=== PATIENT | female | born 1945 | race Caucasian/White ===

== ENCOUNTER 2018-01-22 11:24 | Inpatient (IN) ==
[2018-01-22] MEDS ORDERED: Isovue-370 500 ML INFUS..BTL IV ONE (11:36)
[2018-01-22] MEDS ORDERED: 0.9 % Sodium Chloride 1,000 ML IVC ONE ×2 (11:36→13:44)
[2018-01-22] MEDS ORDERED: FentaNYL (PF) 1,000 MCG in 0.9 % Sodium Chloride 80 ML IVC SCH (11:45)
[2018-01-22 11:54] LABS: Bilirubin,Urine Negative (Negative); Blood,Urine Negative (Negative); Clarity,Urine Clear (Clear); Color,Urine Yellow (Yellow); Glucose,Urine (UA) Normal (Normal); Ketones,Urine Negative (Negative); Leukocyte Esterase,Urine Negative (Negative); Nitrite,Urine Negative (Negative); PH,Urine 6.5 pH Units (5.0-8.0); Protein,Urine Negative (Neg-Trace); Specific Gravity,Urine 1.019 (1.010-1.025); Urobilinogen,Urine Normal (Normal)
[2018-01-22 11:57] LABS: ABG Base Excess 20 mEq/L (-2 to 3); ABG HCO3 48 mEq/L (21-27); ABG Oxygen Saturation 100 % (95-98); ABG PCO2 78 mmHg (35-45); ABG PO2 500 mmHg (85-104); ABG TCO2 51 mEq/L (20-26); Blood Gas Modality ASSIST CONTROL; Blood Gas PEEP 5 cm H2O; Blood Gas Respiration Rate 14; Blood Gas VT 500 cc
--- NOTE | 2018-01-22 11:58 | Emergency Department Note ---
Disposition Clinical Impression: Hyperkalemia, Acute respiratory distress Disposition: Admitted As Inpatient Condition: Fair Forms: ED Satisfaction Letter Time of Disposition: 13:38 General Adult HPI - General Chief complaint: ED Shortness of Breath/Dyspnea Stated complaint: respitary distress Time Seen by Provider: 01/22/18 11:35 Source: EMS Mode of arrival: EMS Limitations: other Nursing Notes Reviewed: Yes Vital Signs Reviewed: Yes - History of Present Illness HPI Narrative: 72 year old female prsentes to the ED via EMS in acute respiratory failure with a nasal ET tube. Julio has a history of COPD and was unresponsive and hypoxic to 81% and cyanotic on presentation for EMS. EMS states that she was recently diagnosed with a UTI and refused to be treated for it. Patient is somnolent and snoring on presentation with a GCS < 8. Aside from the history that EMS has offered there is no other history to be provided. Pain Scale: 0 - Related Data Allergies Allergy/AdvReac Type Severity Reaction Status Date / Time No Known Allergies Allergy Unverified 03/31/16 11:10 Review of Systems: As Per HPI (given by EMS) Constitutional: Reports: weakness. Denies: fever, chills, weight change Eyes: Denies: eye pain, eye discharge, vision change ENT ED: Denies: ear pain, throat pain, dental pain, hearing loss, epistaxis, congestion, dysphagia Cardiovascular: Reports: dyspnea on exertion. Denies: chest pain, palpitations , edema, syncope Respiratory: Reports: dyspnea, wheezes. Denies: cough, hemoptysis, stridor Gastrointestinal: Denies: abdominal pain, nausea, vomiting, diarrhea, constipation, hematemesis, melena, hematochezia Genitourinary: Reports: urgency, dysuria, frequency. Denies: hematuria, discharge Musculoskeletal: Denies: back pain, neck pain, arthralgia, myalgia Integumentary: Denies: rash, abrasion, lesions Neurological: Denies: headache, weakness, numbness, paresthesias, confusion, abnormal gait, vertigo Psychiatric: Denies: anxiety, depression, suicidal thoughts, homicidal thoughts , auditory hallucinations, visual hallucinations Endocrine: Denies: fatigue Hematological/Lymphatic: Denies: easy bleeding, easy bruising Allergic/Immunologic: Denies: facial swelling, urticaria Past Medical History - Past Medical History Medical history: Reports: non-contributory - Social History Smoking Status: Current every day smoker Smokeless Tobacco Status: No Physical Exam - General Limitations: other General appearance: obtunded, other - Head Head exam: atraumatic, normocephalic, normal inspection - Eye Eye exam: Present: normal appearance, PERRL, EOMI, mydriasis - ENT ENT exam: normal exam, normal oropharynx, mucous membranes moist, other (nasal ET tube in place) - Neck Neck exam: Present: normal inspection, full ROM, trachea midline - Chest Chest inspection: Present: normal inspection, symmetric chest wall rise - Respiratory Respiratory exam: Present: respiratory distress, wheezes, accessory muscle use, prolonged expiratory phase - Cardiovascular Cardiovascular exam: Present: regular rate, normal rhythm, normal heart sounds - Abdominal Exam Abdominal exam: Present: soft, Non-Tender. Absent: tenderness, distention, guarding, rebound, rigidity - Extremities Exam Extremities exam: Present: normal inspection, full ROM. Absent: tenderness, pedal edema - Back Exam Back exam: Present: normal inspection, full ROM. Absent: tenderness - Neurological Exam Neurological exam: Absent: alert, oriented X3 Course Course Narrative: we will do AMS/sepsis wokrup on patinet and have replaced the nasal tube with an ET tube. SEdation protocol ordered. - Reevaluation(s) Reevaluation #1: updated patients family on results. She has some blood nasopharyngeal discharge which is likely traumatic from the nasal ET tube place dby EMS. she is not anemic at this time. Admit to ICU Time: 13:37 - Consultations Consultation #1: discussed case with and he has accepted patient to the ICU Time: 13:37 Vital Signs Temperature 97.6 F 01/22/18 11:28 Pulse Rate 89 01/22/18 11:28 Respiratory Rate 10 01/22/18 11:28 Blood Pressure 115/65 01/22/18 11:28 O2 Sat by Pulse Oximetry 100 01/22/18 11:28 Temperature 97.6 F 01/22/18 11:38 Pulse Rate 87 01/22/18 13:30 Respiratory Rate 16 01/22/18 13:30 Blood Pressure 124/76 01/22/18 13:30 O2 Sat by Pulse Oximetry 100 01/22/18 13:30 Oxygen Delivery Oxygen Delivery Ventilator Procedures - Intubation Time out performed: No sedative: Etomidate Mg Given: 20 paralytic: Rocuronium Mg Given: 100 Laryngoscope: other (Cmac) ET Tube Size: Oral ET Tube Uncuffed: No Tube Secured Depth (cm): 23 Tube Secured Location: teeth Tube Placement Confirmation: visualized tube passing through cords, equal breath sounds bilaterally, no breath sounds over epigastrium Patient Tolerated Procedure: well Intubation Complications: none Medical Decision Making - Medical Records Medical records reviewed: Yes I reviewed the patient's medical records. - Lab Data Lab results reviewed: Yes I reviewed the patient's lab results. Result diagrams: 01/22/18 11:48 01/22/18 11:48 Lab Results 01/22/18 01/22/18 01/22/18 Range/Units 11:32 11:40 11:48 WBC 8.1 (4.3-11.1) K/mcL RBC 3.32 L (3.82-4.97) M/mcL Hgb 10.1 L (11.5-15.4) g/dL Hct 34.4 L (35.3-44.9) % MCV 103.6 H (83.0-100.0) fL MCH 30.4 (28.0-33.3) pg MCHC 29.4 L (31.6-35.5) g/dL RDW 12.7 (11.5-14.5) % Plt Count 255 (140-400) K/mcL MPV 9.2 L (9.4-12.4) fL Immature Gran % 0.9 (0-4) % Seg Neutrophils % 76.1 % Lymphocytes % 14.7 % Monocytes % 6.6 % Eosinophils % 1.2 % Basophils % 0.5 % Neutrophils # 6.1 (1.6-8.9) K/mcL Lymphocytes # 1.2 (0.6-4.6) K/mcL Monocytes # 0.5 (0.0-1.3) K/mcL Eosinophils # 0.1 (0.0-0.6) K/mcL Basophils # 0.0 (0.0-0.2) K/mcL PT (9.4-12.1) Seconds INR APTT (26.0-36.0) Seconds ABG pH (7.32-7.45) pH Units ABG pCO2 (35-45) mmHg ABG pO2 (85-104) mmHg ABG HCO3 (21-27) mEq/L ABG Total CO2 (20-26) mEq/L ABG O2 Saturation (95-98) % ABG Base Excess (-2 to 3) mEq/L Respiration Rate Blood Gas Modality Inspired O2 (1-15=lpm [id number]=%) Tidal Volume cc PEEP cm H2O Sodium (136-145) mEq/L Potassium (3.5-5.1) mEq/L Chloride (98-107) mEq/L Carbon Dioxide (23-29) mEq/L BUN (8-23) mg/dL Creatinine (0.60-1.20) mg/dL Est GFR ( Amer) (> 60) Est GFR (Non-Af Amer) (> 60) BUN/Creatinine Ratio (6-26) Glucose (70-105) mg/dL POC Glucose 88 (70-99) mg/dL Calculated Osmolality (280-300) Lactic Acid (0.5-2.2) mmol/L Calcium (8.6-10.3) mg/dL Phosphorus (2.7-4.5) mg/dL Magnesium (1.6-2.6) mg/dL Total Bilirubin (0.3-1.0) mg/dL Direct Bilirubin (0.0-0.2) mg/dL Indirect Bilirubin (0.0-1.2) mg/dL AST (13-39) Units/L ALT (7-52) Units/L Alkaline Phosphatase (34-104) Units/L Troponin I (< 0.04) ng/mL Serum Total Protein (6.4-8.9) g/dL Albumin (3.5-5.7) g/dL Globulin (2.4-3.5) g/dL Albumin/Globulin Ratio (1.1-2.2) Lipase (11-82) Units/L Random Cortisol mcg/dl Urine Color Yellow (Yellow) Urine Clarity Clear (Clear) Urine pH 6.5 (5.0-8.0) pH Units Ur Specific [place] 1.019 (1.010-1.025) Urine Protein Negative (Neg-Trace) mg/dL Urine Glucose (UA) Normal (Normal) mg/dL Urine Ketones Negative (Negative) mg/dL Urine Blood Negative (Negative) Urine Nitrite Negative (Negative) Urine Bilirubin Negative (Negative) Urine Urobilinogen Normal (Normal) mg/dL Ur Leukocyte Esterase Negative (Negative) Ur Culture Indicated? NO (NO) 01/22/18 01/22/18 01/22/18 Range/Units 11:48 11:48 11:48 WBC (4.3-11.1) K/mcL RBC (3.82-4.97) M/mcL Hgb (11.5-15.4) g/dL Hct (35.3-44.9) % MCV (83.0-100.0) fL MCH (28.0-33.3) pg MCHC (31.6-35.5) g/dL RDW (11.5-14.5) % Plt Count (140-400) K/mcL MPV (9.4-12.4) fL Immature Gran % (0-4) % Seg Neutrophils % % Lymphocytes % % Monocytes % % Eosinophils % % Basophils % % Neutrophils # (1.6-8.9) K/mcL Lymphocytes # (0.6-4.6) K/mcL Monocytes # (0.0-1.3) K/mcL Eosinophils # (0.0-0.6) K/mcL Basophils # (0.0-0.2) K/mcL PT 10.8 (9.4-12.1) Seconds INR 1.0 APTT 26.6 (26.0-36.0) Seconds ABG pH (7.32-7.45) pH Units ABG pCO2 (35-45) mmHg ABG pO2 (85-104) mmHg ABG HCO3 (21-27) mEq/L ABG Total CO2 (20-26) mEq/L ABG O2 Saturation (95-98) % ABG Base Excess (-2 to 3) mEq/L Respiration Rate Blood Gas Modality Inspired O2 (1-15=lpm [id number]=%) Tidal Volume cc PEEP cm H2O Sodium 140 (136-145) mEq/L Potassium 5.2 H (3.5-5.1) mEq/L Chloride 93 L (98-107) mEq/L Carbon Dioxide > 45 H* (23-29) mEq/L BUN 19 (8-23) mg/dL Creatinine 0.59 L (0.60-1.20) mg/dL Est GFR ( Amer) > 60 (> 60) Est GFR (Non-Af Amer) > 60 (> 60) BUN/Creatinine Ratio 32 H (6-26) Glucose 87 (70-105) mg/dL POC Glucose (70-99) mg/dL Calculated Osmolality 292 (280-300) Lactic Acid 0.8 (0.5-2.2) mmol/L Calcium 8.8 (8.6-10.3) mg/dL Phosphorus 3.8 (2.7-4.5) mg/dL Magnesium 1.8 (1.6-2.6) mg/dL Total Bilirubin 0.3 (0.3-1.0) mg/dL Direct Bilirubin 0.2 (0.0-0.2) mg/dL Indirect Bilirubin 0.1 (0.0-1.2) mg/dL AST 15 (13-39) Units/L ALT 22 (7-52) Units/L Alkaline Phosphatase 86 (34-104) Units/L Troponin I < 0.03 (< 0.04) ng/mL Serum Total Protein 5.5 L (6.4-8.9) g/dL Albumin 3.4 L (3.5-5.7) g/dL Globulin 2.1 L (2.4-3.5) g/dL Albumin/Globulin Ratio 1.6 (1.1-2.2) Lipase 31 (11-82) Units/L Random Cortisol 17.5 mcg/dl Urine Color (Yellow) Urine Clarity (Clear) Urine pH (5.0-8.0) pH Units Ur Specific [place] (1.010-1.025) Urine Protein (Neg-Trace) mg/dL Urine Glucose (UA) (Normal) mg/dL Urine Ketones (Negative) mg/dL Urine Blood (Negative) Urine Nitrite (Negative) Urine Bilirubin (Negative) Urine Urobilinogen (Normal) mg/dL Ur Leukocyte Esterase (Negative) Ur Culture Indicated? (NO) 01/22/18 Range/Units 11:52 WBC (4.3-11.1) K/mcL RBC (3.82-4.97) M/mcL Hgb (11.5-15.4) g/dL Hct (35.3-44.9) % MCV (83.0-100.0) fL MCH (28.0-33.3) pg MCHC (31.6-35.5) g/dL RDW (11.5-14.5) % Plt Count (140-400) K/mcL MPV (9.4-12.4) fL Immature Gran % (0-4) % Seg Neutrophils % % Lymphocytes % % Monocytes % % Eosinophils % % Basophils % % Neutrophils # (1.6-8.9) K/mcL Lymphocytes # (0.6-4.6) K/mcL Monocytes # (0.0-1.3) K/mcL Eosinophils # (0.0-0.6) K/mcL Basophils # (0.0-0.2) K/mcL PT (9.4-12.1) Seconds INR APTT (26.0-36.0) Seconds ABG pH 7.40 (7.32-7.45) pH Units ABG pCO2 78 H* (35-45) mmHg ABG pO2 500 H (85-104) mmHg ABG HCO3 48 H (21-27) mEq/L ABG Total CO2 51 H (20-26) mEq/L ABG O2 Saturation 100 H (95-98) % ABG Base Excess 20 H (-2 to 3) mEq/L Respiration Rate 14 Blood Gas Modality ASSIST CONTROL Inspired O2 100.0 (1-15=lpm [id number]=%) Tidal Volume 500 cc PEEP 5 cm H2O Sodium (136-145) mEq/L Potassium (3.5-5.1) mEq/L Chloride (98-107) mEq/L Carbon Dioxide (23-29) mEq/L BUN (8-23) mg/dL Creatinine (0.60-1.20) mg/dL Est GFR ( Amer) (> 60) Est GFR (Non-Af Amer) (> 60) BUN/Creatinine Ratio (6-26) Glucose (70-105) mg/dL POC Glucose (70-99) mg/dL Calculated Osmolality (280-300) Lactic Acid (0.5-2.2) mmol/L Calcium (8.6-10.3) mg/dL Phosphorus (2.7-4.5) mg/dL Magnesium (1.6-2.6) mg/dL Total Bilirubin (0.3-1.0) mg/dL Direct Bilirubin (0.0-0.2) mg/dL Indirect Bilirubin (0.0-1.2) mg/dL AST (13-39) Units/L ALT (7-52) Units/L Alkaline Phosphatase (34-104) Units/L Troponin I (< 0.04) ng/mL Serum Total Protein (6.4-8.9) g/dL Albumin (3.5-5.7) g/dL Globulin (2.4-3.5) g/dL Albumin/Globulin Ratio (1.1-2.2) Lipase (11-82) Units/L Random Cortisol mcg/dl Urine Color (Yellow) Urine Clarity (Clear) Urine pH (5.0-8.0) pH Units Ur Specific [place] (1.010-1.025) Urine Protein (Neg-Trace) mg/dL Urine Glucose (UA) (Normal) mg/dL Urine Ketones (Negative) mg/dL Urine Blood (Negative) Urine Nitrite (Negative) Urine Bilirubin (Negative) Urine Urobilinogen (Normal) mg/dL Ur Leukocyte Esterase (Negative) Ur Culture Indicated? (NO) - Radiology Data Radiology results reviewed: Yes I reviewed the patient's radiology results. - EKG Data EKG #1 EKG attestation: Yes I reviewed and interpreted this EKG. EKG results narrative: NSR with rate of 84. NO STEMI. normal intervals. ghassan harrison from 07/22/14 [id number]
[2018-01-22 12:02] LABS: Basophils % 0.5 %; Eosinophils # 0.1 K/mcL (0.0-0.6); Eosinophils % 1.2 %; Hematocrit 34.4 % (35.3-44.9); Hemoglobin 10.1 g/dL (11.5-15.4); Immature Granulocytes % 0.9 % (0-4); Lymphocytes # 1.2 K/mcL (0.6-4.6); Lymphocytes % 14.7 %; Mean Corpuscular HGB Conc 29.4 g/dL (31.6-35.5); Mean Corpuscular Hemoglobin 30.4 pg (28.0-33.3); Mean Corpuscular Volume 103.6 fL (83.0-100.0); Mean Platelet Volume 9.2 fL (9.4-12.4); Monocytes # 0.5 K/mcL (0.0-1.3); Monocytes % 6.6 %; Neutrophils # 6.1 K/mcL (1.6-8.9); Platelet Count 255 K/mcL (140-400); Red Blood Count 3.32 M/mcL (3.82-4.97); Red Cell Distribution Width 12.7 % (11.5-14.5); Segmented Neutrophils % 76.1 %
[2018-01-22 12:07] LABS: Prothrombin Time 10.8 Seconds (9.4-12.1)
[2018-01-22 12:09] LABS: Activated Partial Thrombo Time 26.6 Seconds (26.0-36.0)
[2018-01-22 12:22] LABS: Troponin I < 0.03 ng/mL (< 0.04)
[2018-01-22 12:31] LABS: Alanine Aminotransferase 22 Units/L (7-52); Albumin 3.4 g/dL (3.5-5.7); Albumin/Globulin Ratio 1.6 (1.1-2.2); Alkaline Phosphatase 86 Units/L (34-104); Aspartate Amino Transferase 15 Units/L (13-39); BUN/Creatinine Ratio 32 (6-26); Bilirubin,Direct 0.2 mg/dL (0.0-0.2); Bilirubin,Indirect 0.1 mg/dL (0.0-1.2); Bilirubin,Total 0.3 mg/dL (0.3-1.0); Blood Urea Nitrogen 19 mg/dL (8-23); Calcium 8.8 mg/dL (8.6-10.3); Carbon Dioxide > 45 mEq/L (23-29); Chloride 93 mEq/L (98-107); Globulin 2.1 g/dL (2.4-3.5); Glucose 87 mg/dL (70-105); Lipase 31 Units/L (11-82); Magnesium 1.8 mg/dL (1.6-2.6); Osmolality,Calculated 292 (280-300); Phosphorous 3.8 mg/dL (2.7-4.5); Potassium 5.2 mEq/L (3.5-5.1); Sodium 140 mEq/L (136-145); Total Protein 5.5 g/dL (6.4-8.9); eGFR For African Americans > 60 (> 60); eGFR For Non-African Americans > 60 (> 60)
[2018-01-22] MEDS ORDERED: 0.9 % Sodium Chloride 1,000 ML ONE (13:45)
[2018-01-22] MEDS: 0.9 % Sodium Chloride 1,000 ML IVC SCH ×7 (14:23→22:45)
[2018-01-22] MEDS ORDERED: Sodium Bicarbonate 50 MEQ/50 ML VIAL IVP ONE (14:36)
--- NOTE | 2018-01-22 15:22 | Pulmonology History & Physical ---
<Lela Muro M - Last Filed: 01/22/18 17:59> Date of Encounter: 01/22/18 History of Present Illness HPI: Ms. Joy is a 72 year old female Past Med Surg Social Fam HX - Family History Father Living Status: Cause of : Cancer Medications and Allergies Albuterol Sulfate [Ventolin Hfa] 2 puff IH BID 01/22/18 [History] Budesonide/Formoterol 160/4.5 [Symbicort 160/4.5] 2 puff IH BIDR 01/22/18 [ History] Diltiazem CD (24hr) [Cardizem CD] 180 mg PO DAILY 01/22/18 [History] Ergocalciferol (VITAMIN D2) [Vitamin D2] 50,000 unit PO SA 01/22/18 [History] Ferrous Sulfate [Iron] 325 mg PO DAILY 01/22/18 [History] Fluticasone Propionate Nasal [Flonase] 2 spr NS DAILY 01/22/18 [History] LevETIRAcetam [Keppra] 500 mg PO Q12H 01/22/18 [History] Lisinopril [Zestril] 40 mg PO DAILY 01/22/18 [History] Loratadine [Allergy Relief] 10 mg PO DAILY 01/22/18 [History] Megestrol Acetate [Megace] 4,000 mg PO BID 01/22/18 [History] Multivit-Min/FA/Lycopen/Lutein [A Thru Z Select Multivit Tab] 1 tab PO DAILY [History] Tiotropium [Spiriva] 18 mcg IH DAILY 01/22/18 [History] Venlafaxine HCl [Venlafaxine HCl ER] 150 mg PO DAILY 01/22/18 [History] 3 Allergy/AdvReac Type Severity Reaction Status Date / Time No Known Allergies Allergy Unverified 03/31/16 11:10 All Systems: The remainder of the systems were reviewed and are negative Physical Examination Vital Signs: Vital Signs, Last 4 Hours Temp Pulse Resp BP Pulse Ox 01/22/18 17:21 100 01/22/18 17:01 10 119/68 100 01/22/18 17:00 100.0 F H 91 10 119/68 100 Results - Laboratory Findings CBC and BMP: 01/22/18 11:48 01/22/18 11:48 ABG ABG pH 7.40 pH Units (7.32-7.45) 01/22/18 17:22 ABG pCO2 63 mmHg (35-45) H 01/22/18 17:22 ABG pO2 552 mmHg (85-104) H D 01/22/18 17:22 ABG O2 Saturation 100 % (95-98) H 01/22/18 17:22 PT/INR, D-dimer PT 10.8 Seconds (9.4-12.1) 01/22/18 11:48 Abnormal lab findings: Abnormal lab results RBC 3.32 M/mcL (3.82-4.97) L 01/22/18 11:48 Hgb 10.1 g/dL (11.5-15.4) L 01/22/18 11:48 Hct 34.4 % (35.3-44.9) L 01/22/18 11:48 MCV 103.6 fL (83.0-100.0) H 01/22/18 11:48 MCHC 29.4 g/dL (31.6-35.5) L 01/22/18 11:48 MPV 9.2 fL (9.4-12.4) L 01/22/18 11:48 ABG pCO2 63 mmHg (35-45) H 01/22/18 17:22 ABG pO2 552 mmHg (85-104) H D 01/22/18 17:22 ABG HCO3 39 mEq/L (21-27) H 01/22/18 17:22 ABG Total CO2 41 mEq/L (20-26) H 01/22/18 17:22 ABG O2 Saturation 100 % (95-98) H 01/22/18 17:22 ABG Base Excess 12 mEq/L (-2 to 3) H 01/22/18 17:22 Potassium 5.2 mEq/L (3.5-5.1) H 01/22/18 11:48 Chloride 93 mEq/L (98-107) L 01/22/18 11:48 Carbon Dioxide > 45 mEq/L (23-29) H* 01/22/18 11:48 Creatinine 0.59 mg/dL (0.60-1.20) L 01/22/18 11:48 BUN/Creatinine Ratio 32 (6-26) H 01/22/18 11:48 Serum Total Protein 5.5 g/dL (6.4-8.9) L 01/22/18 11:48 Albumin 3.4 g/dL (3.5-5.7) L 01/22/18 11:48 Globulin 2.1 g/dL (2.4-3.5) L 01/22/18 11:48 - Attending Attestation I examined this patient and my medical decision-making was reviewed with the Resident Physician. I agree with the documented findings, disposition and treatment plan as described except to the extent set forth below. Patient seen and examined. Labs, radiology, chart personally reviewed. I was called by the emergency room physician to evaluate this patient and she was evaluated in emergency room and in the ICU. Patient is not able to give history and was taken from family at the bedside Agree with resident's history and physical, assessment, plan with following comments: [employer]: Patient does not follows commands, Pulmonary: Acceptable oxygenation and ventilation. Patient has evidence of intrinsic PEEP and I have changed her respiratory rate and tidal volume and lowering FiO2 and I am hoping treating care COPD exacerbation it will help and will be able to extubate her in next 1-2 days. Advised patient's daughter to help her to quit smoking otherwise this will be a recurrent problem. Cardiovascular: stable GI: Nutrition per dietary and GI prophylaxis per routine Heme: DVT prophylaxis per routine ID: Continue antibiotics and plan to de-escalation Renal; urine out put and renal funtion reviewed Endorcine: blood glucose is monitored Lines: all lines checked and no evidence of infections Skin: skin care to prevent pressure ulcers per nursing routine care I spent 40 min of Critical Care time with this patient. It involved decision making of high complexity to assess, manipulate, and support vital organ system failure and/or to prevent further life threatening deterioration of the patient' s condition. The time involved in the performance of separately reportable procedures was not counted toward critical care time. <John Figueroa - Last Filed: 01/22/18 18:22> Date of Encounter: 01/22/18 Time of Encounter: 15:20 Assessment and Plan (1) Acute respiratory failure with hypoxia Current visit: Yes Status: Acute Presented to ED via EMS for acute respiratory failure - Patient was found unresponsive, cyanotic, and hypoxic at 81%. - Patient was intubated - ABG demonstrated the following 7.4/78/500/48/51/100 - Currently on the following vent settings: Inspired O2 100, tidal volume 500, PEEP of 5 - Fentanyl and Versed for sedation CTA of the chest obtained on 01/22/18 demonstrated the following: - No pulmonary embolus is identified - 12 mm nodule in the anterior RUL is concerning; Correlate with any prior outside imaging; otherwise, consider PET-CT and/or biopsy at this time - No significant mediastinal adenopathy - 3 cm abdominal aortic aneurysm - Cholelithiasis Plan: - Patient will be admitted to ICU for further management - Continuous telemetry and pulse oximetry (2) COPD (chronic obstructive pulmonary disease) Current visit: Yes Status: Acute Patient has a known history of COPD - Home medications include Ventolin HFA, Spiriva, Symbicort - Currently on mechanical ventilation - Continuous pulse oximetry Qualifiers: Qualified Code(s): J44.9 - Chronic obstructive pulmonary disease, unspecified (3) Altered mental status Current visit: Yes Status: Acute Patient was completely nonresponsive when EMS arrived CT scan of the head/brain without contrast on 01/22/18 demonstrated the following : - No convincing acute intracranial abnormality - Scattered atherosclerosis - There is scattered opacification of the nasal cavity and nasopharynx - Trace right mastoid effusion Qualifiers: Qualified Code(s): R41.82 - Altered mental status, unspecified (4) Seizure disorder Current visit: Yes Status: Acute Patient has a known history of seizures - Normally takes Keppra 500 mg by mouth every 12 hours, venlafaxine 150 mg by mouth daily (5) Essential hypertension Current visit: Yes Status: Acute Patient has a known history of HTN - Home meds include Zestril 40 mg PO daily and Cardizem CD 180 mg PO daily - Patients last blood pressure was 106/71 - Hold antihypertensives for the time being (6) Hyperkalemia Current visit: Yes Status: Acute - On arrival, laboratory analysis demonstrated elevated potassium level at 5.2 (7) Tobacco abuse Current visit: Yes Status: Acute Per chart review, patient is a pack per day smoker Plan: -Nicotine patch (8) DVT prophylaxis Current visit: Yes Status: Acute - Heparin 5000 subcutaneous every 12 History of Present Illness Chief complaint: Acute respiratory failure HPI: Randa Joy is a 72 year old female who presented to the ED on 01/22/18 via EMS in acute respiratory failure with a nasal ET tube. Patient has a known past medical history of COPD. She was found unresponsive and hypoxic at 81%. Patient was cyanotic when EMS arrived. According to EMS, patient had recently been diagnosed with UTI and refused to be treated for it. She was somnolent and snoring on presentation with a GCS less than 8. No other history was able to be obtained. On arrival, patient had a respiratory rate of 10. All other vitals were within normal limits. Arterial blood gas demonstrated the following: PH 7.4, PCO2 78, PO2 500, bicarbonate 48, total CO2 51, O2 saturation 100. She is currently on the following vent settings: Inspired O2 100, tidal volume 500, PEEP 5. Laboratory analysis demonstrated an elevated potassium level of 5.2. Both BNP and lactic acid have been ordered. Blood culture is pending. Patient was started on both fentanyl and Versed for sedation. Past Med Surg Social Fam HX - Past Medical History Medical history: non-contributory Psychiatric history: no psych history - Social History Smoking Status: Current every day smoker Smokeless Tobacco Status: No ROS unobtainable: due to endotracheal tube All Systems: The remainder of the systems were reviewed and are negative Physical Examination Vital Signs: Vital Signs, Last 4 Hours Temp Pulse Resp BP Pulse Ox 01/22/18 15:10 89 14 106/71 01/22/18 15:00 88 14 124/74 01/22/18 14:58 83 14 111/84 01/22/18 14:40 81 14 97/73 01/22/18 14:31 82 14 103/46 01/22/18 14:27 81 14 84/69 01/22/18 14:19 88 14 87/61 01/22/18 14:11 83 14 88/62 01/22/18 14:00 83 14 106/52 01/22/18 13:56 82 14 105/64 01/22/18 13:51 84 14 90/54 01/22/18 13:43 89 14 89/62 01/22/18 13:36 86 14 112/71 100 01/22/18 13:30 87 16 124/76 100 01/22/18 12:50 87 14 164/90 01/22/18 12:34 88 14 162/87 100 01/22/18 12:30 85 14 157/87 100 01/22/18 12:20 87 14 141/90 100 01/22/18 12:00 105/73 01/22/18 11:52 100 14 104/71 100 01/22/18 11:41 100 01/22/18 11:40 99 14 57/42 100 01/22/18 11:38 97.6 F 100 01/22/18 11:34 114/58 100 01/22/18 11:28 97.6 F 89 10 115/65 100 General appearance: asleep ENT: oropharynx moist Neck: supple Effort: normal Inspection: normal Auscultation: bilateral: diminished breath sounds, wheezes Percussion: bilateral: not dull Tactile fremitus: bilateral: normal Cardiovascular: regular rate and rhythm Gastrointestinal: normoactive bowel sounds, non-distended Integumentary: normal Extremities: no cyanosis, no edema, no clubbing Musculoskeletal: no deformities Results - Laboratory Findings CBC and BMP: 01/22/18 11:48 01/22/18 11:48 ABG ABG pH 7.40 pH Units (7.32-7.45) 01/22/18 11:52 ABG pCO2 78 mmHg (35-45) H* 01/22/18 11:52 ABG pO2 500 mmHg (85-104) H 01/22/18 11:52 ABG O2 Saturation 100 % (95-98) H 01/22/18 11:52 PT/INR, D-dimer PT 10.8 Seconds (9.4-12.1) 01/22/18 11:48 Abnormal lab findings: Abnormal lab results RBC 3.32 M/mcL (3.82-4.97) L 01/22/18 11:48 Hgb 10.1 g/dL (11.5-15.4) L 01/22/18 11:48 Hct 34.4 % (35.3-44.9) L 01/22/18 11:48 MCV 103.6 fL (83.0-100.0) H 01/22/18 11:48 MCHC 29.4 g/dL (31.6-35.5) L 01/22/18 11:48 MPV 9.2 fL (9.4-12.4) L 01/22/18 11:48 ABG pCO2 78 mmHg (35-45) H* 01/22/18 11:52 ABG pO2 500 mmHg (85-104) H 01/22/18 11:52 ABG HCO3 48 mEq/L (21-27) H 01/22/18 11:52 ABG Total CO2 51 mEq/L (20-26) H 01/22/18 11:52 ABG O2 Saturation 100 % (95-98) H 01/22/18 11:52 ABG Base Excess 20 mEq/L (-2 to 3) H 01/22/18 11:52 Potassium 5.2 mEq/L (3.5-5.1) H 01/22/18 11:48 Chloride 93 mEq/L (98-107) L 01/22/18 11:48 Carbon Dioxide > 45 mEq/L (23-29) H* 01/22/18 11:48 Creatinine 0.59 mg/dL (0.60-1.20) L 01/22/18 11:48 BUN/Creatinine Ratio 32 (6-26) H 01/22/18 11:48 Serum Total Protein 5.5 g/dL (6.4-8.9) L 01/22/18 11:48 Albumin 3.4 g/dL (3.5-5.7) L 01/22/18 11:48 Globulin 2.1 g/dL (2.4-3.5) L 01/22/18 11:48
[2018-01-22] MEDS ORDERED: Hydrocortisone Sodium Succ 100 MG/2 ML VIAL IVP ONE (15:46)
[2018-01-22] MEDS ORDERED: Naloxone 0.4 MG/ML INJ IVP PRN (16:42)
[2018-01-22] MEDS ORDERED: *HR* Dextrose 50 % in Water (Syg) 50 ML SYRINGE ONE (17:13)
[2018-01-22 17:27] LABS: ABG Base Excess 12 mEq/L (-2 to 3); ABG HCO3 39 mEq/L (21-27); ABG Oxygen Saturation 100 % (95-98); ABG PCO2 63 mmHg (35-45); ABG PO2 552 mmHg (85-104); ABG TCO2 41 mEq/L (20-26); Blood Gas Modality VC; Blood Gas PEEP 5 cm H2O; Blood Gas Respiration Rate 10; Blood Gas VT 550 cc
[2018-01-22] MEDS: Budesonide/Formoterol 160/4.5 MDI IH SCH (19:32)
[2018-01-23] MEDS: methylPREDNISolone 125 MG/2 ML VIAL IVP SCH ×4 (02:08→23:43)
[2018-01-23 04:04] LABS: ABG Base Excess 9 mEq/L (-2 to 3); ABG HCO3 34 mEq/L (21-27); ABG Oxygen Saturation 93 % (95-98); ABG PCO2 49 mmHg (35-45); ABG PH 7.45 pH Units (7.32-7.45); ABG PO2 66 mmHg (85-104); ABG TCO2 36 mEq/L (20-26); Blood Gas Modality VC; Blood Gas PEEP 5 cm H2O; Blood Gas Respiration Rate 10; Blood Gas VT 550 cc
[2018-01-23 04:34] LABS: Basophils % 0.3 %; Eosinophils % 0.3 %; Hematocrit 31.9 % (35.3-44.9); Hemoglobin 9.9 g/dL (11.5-15.4); Immature Granulocytes % 0.5 % (0-4); Lymphocytes # 0.8 K/mcL (0.6-4.6); Lymphocytes % 6.7 %; Mean Corpuscular Hemoglobin 30.7 pg (28.0-33.3); Mean Corpuscular Volume 98.8 fL (83.0-100.0); Mean Platelet Volume 9.5 fL (9.4-12.4); Monocytes # 0.7 K/mcL (0.0-1.3); Monocytes % 6.2 %; Neutrophils # 10.2 K/mcL (1.6-8.9); Platelet Count 219 K/mcL (140-400); Red Blood Count 3.23 M/mcL (3.82-4.97); Red Cell Distribution Width 13.2 % (11.5-14.5)
[2018-01-23 04:51] LABS: BUN/Creatinine Ratio 45 (6-26); Blood Urea Nitrogen 20 mg/dL (8-23); Calcium 8.4 mg/dL (8.6-10.3); Carbon Dioxide 35 mEq/L (23-29); Chloride 103 mEq/L (98-107); Glucose 84 mg/dL (70-105); Osmolality,Calculated 294 (280-300); Potassium 4.7 mEq/L (3.5-5.1); Sodium 141 mEq/L (136-145); eGFR For African Americans > 60 (> 60); eGFR For Non-African Americans > 60 (> 60)
[2018-01-23] MEDS: 0.9 % Sodium Chloride 1,000 ML IVC SCH ×3 (07:01→22:40)
[2018-01-23] MEDS: Budesonide/Formoterol 160/4.5 MDI IH SCH ×2 (07:25→20:02)
--- NOTE | 2018-01-23 08:12 | Pulmonology Progress Note ---
<John Figueroa - Last Filed: 01/23/18 08:13> Date of Encounter: 01/23/18 Time of Encounter: 08:10 Assessment and Plan (1) Acute respiratory failure with hypoxia Current Visit: Yes Status: Acute Presented to ED via EMS for acute respiratory failure - Patient was found unresponsive, cyanotic, and hypoxic at 81%. - Patient was intubated - ABGs 7.4/78/500/48/51/100 7.45/49/66/34/36/93 - Currently on the following vent settings: Inspired O2 100, tidal volume 500, PEEP of 5 - Fentanyl and Versed for sedation CTA of the chest obtained on 01/22/18 demonstrated the following: - No pulmonary embolus is identified - 12 mm nodule in the anterior RUL is concerning; Correlate with any prior outside imaging; otherwise, consider PET-CT and/or biopsy at this time - No significant mediastinal adenopathy - 3 cm abdominal aortic aneurysm - Cholelithiasis Plan: - Patient will be admitted to ICU for further management - Continuous telemetry and pulse oximetry (2) COPD (chronic obstructive pulmonary disease) Current Visit: Yes Status: Acute Patient has a known history of COPD - Home medications include Ventolin HFA, Spiriva, Symbicort - Currently on mechanical ventilation - Continuous pulse oximetry - Symbicort 160/4.52 puffs inhaled BIDR ALBERTO (3) Altered mental status Current Visit: Yes Status: Acute Patient was completely nonresponsive when EMS arrived CT scan of the head/brain without contrast on 01/22/18 demonstrated the following : - No convincing acute intracranial abnormality - Scattered atherosclerosis - There is scattered opacification of the nasal cavity and nasopharynx - Trace right mastoid effusion (4) Seizure disorder Current Visit: Yes Status: Acute Patient has a known history of seizures - Normally takes Keppra 500 mg by mouth every 12 hours, venlafaxine 150 mg by mouth daily (5) Essential hypertension Current Visit: Yes Status: Acute Patient has a known history of HTN - Home meds include Zestril 40 mg PO daily and Cardizem CD 180 mg PO daily (6) Hyperkalemia Current Visit: Yes Status: Acute - On arrival, laboratory analysis demonstrated elevated potassium level at 5.2 - Resolved (7) Tobacco abuse Current Visit: Yes Status: Acute Per chart review, patient is a pack per day smoker Plan: -Nicotine patch (8) DVT prophylaxis Current Visit: Yes Status: Acute - Heparin 5000 subcutaneous every 12 Subjective Principal diagnosis: Acute respiratory failure with hypoxia Interval history: Patient was seen and examined at bedside this morning. Currently asleep, intubated and sedated. She is on propofol and fentanyl for sedation. Patient' s blood pressure has been running high. We will consider resuming antihypertensive medications. Objective PUL Vital signs: Last Vital Signs Temp 98.8 F 01/23/18 07:30 Pulse 94 01/23/18 07:30 Resp 16 01/23/18 07:30 BP 153/85 01/23/18 07:30 Pulse Ox 94 01/23/18 07:30 General appearance: no acute distress, asleep Neck: supple Effort: normal Auscultation: bilateral: diminished breath sounds Percussion: bilateral: not dull Tactile fremitus: bilateral: normal Cardiovascular: regular rate and rhythm Integumentary: normal Extremities: no cyanosis, no edema, no clubbing Musculoskeletal: no deformities, ROM normal Ventilator Settings Ventilator Settings: Ventilator Settings, Last 8 Hours Ventilator Mode VC+ Ventilator Mode VC+ Ventilator Mode VC+ Ventilator Mode A/C Ventilator Mode A/C Ventilator Mode A/C Ventilator Mode A/C Ventilator Mode A/C Ventilator Mode VC+ Ventilator Mode A/C Ventilator Tidal Volume 550 Setting Ventilator Tidal Volume 550 Setting Ventilator Tidal Volume 550 Setting Ventilator Tidal Volume 550 Setting Ventilator Tidal Volume 550 Setting Ventilator Tidal Volume 550 Setting Ventilator Tidal Volume 550 Setting Ventilator Tidal Volume 550 Setting Ventilator Tidal Volume 550 Setting Ventilator Tidal Volume 550 Setting Ventilator Respiratory Rate 10 Setting Ventilator Respiratory Rate 10 Setting Ventilator Respiratory Rate 10 Setting Ventilator Respiratory Rate 10 Setting Ventilator Respiratory Rate 10 Setting Ventilator Respiratory Rate 10 Setting Ventilator Respiratory Rate 10 Setting Ventilator Respiratory Rate 10 Setting Ventilator Respiratory Rate 10 Setting Ventilator Respiratory Rate 10 Setting Actual Respiratory Rate 14 Actual Respiratory Rate 12 Actual Respiratory Rate 10 Actual Respiratory Rate 10 Actual Respiratory Rate 10 Actual Respiratory Rate 10 Actual Respiratory Rate 10 Actual Respiratory Rate 10 Positive End Expiratory 5 Pressure Positive End Expiratory 5 Pressure Positive End Expiratory 5 Pressure Positive End Expiratory 5 Pressure Positive End Expiratory 5 Pressure Positive End Expiratory 5 Pressure Positive End Expiratory 5 Pressure Positive End Expiratory 5 Pressure Positive End Expiratory 5 Pressure Positive End Expiratory 5 Pressure Peak Inspiratory Airway 22 Pressure Peak Inspiratory Airway 27 Pressure Peak Inspiratory Airway 29 Pressure Peak Inspiratory Airway 32 Pressure Peak Inspiratory Airway 34 Pressure Peak Inspiratory Airway 32 Pressure Peak Inspiratory Airway 37 Pressure Peak Inspiratory Airway 37 Pressure Peak Inspiratory Airway 37 Pressure Results - Laboratory Findings CBC and BMP: 01/23/18 03:43 01/23/18 03:43 ABG ABG pH 7.45 pH Units (7.32-7.45) 01/23/18 04:01 ABG pCO2 49 mmHg (35-45) H 01/23/18 04:01 ABG pO2 66 mmHg (85-104) L 01/23/18 04:01 ABG O2 Saturation 93 % (95-98) L 01/23/18 04:01 PT/INR, D-dimer PT 10.8 Seconds (9.4-12.1) 01/22/18 11:48 Abnormal lab findings: Abnormal lab results WBC 11.9 K/mcL (4.3-11.1) H 01/23/18 03:43 RBC 3.23 M/mcL (3.82-4.97) L 01/23/18 03:43 Hgb 9.9 g/dL (11.5-15.4) L 01/23/18 03:43 Hct 31.9 % (35.3-44.9) L 01/23/18 03:43 MCHC 31.0 g/dL (31.6-35.5) L 01/23/18 03:43 Neutrophils # 10.2 K/mcL (1.6-8.9) H 01/23/18 03:43 ABG pCO2 49 mmHg (35-45) H 01/23/18 04:01 ABG pO2 66 mmHg (85-104) L 01/23/18 04:01 ABG HCO3 34 mEq/L (21-27) H 01/23/18 04:01 ABG Total CO2 36 mEq/L (20-26) H 01/23/18 04:01 ABG O2 Saturation 93 % (95-98) L 01/23/18 04:01 ABG Base Excess 9 mEq/L (-2 to 3) H 01/23/18 04:01 Carbon Dioxide 35 mEq/L (23-29) H 01/23/18 03:43 Creatinine 0.44 mg/dL (0.60-1.20) L 01/23/18 03:43 BUN/Creatinine Ratio 45 (6-26) H 01/23/18 03:43 Calcium 8.4 mg/dL (8.6-10.3) L 01/23/18 03:43 Serum Total Protein 5.5 g/dL (6.4-8.9) L 01/22/18 11:48 Albumin 3.4 g/dL (3.5-5.7) L 01/22/18 11:48 Globulin 2.1 g/dL (2.4-3.5) L 01/22/18 11:48 - Clinical Findings Intake & Output: Intake & Output 01/22/18 01/23/18 01/23/18 23:59 07:59 15:59 Intake Total 1000 / 1999 1000 / 1000 Output Total 730 / 730 315 / 315 Balance 270 / 1270 685 / 685 Weight 62 kg Consult Discharge Plan - Plan Referrals: NONE,PCP [Primary Care Provider] - <Lela Muro - Last Filed: 01/23/18 11:57> Date of Encounter: 01/23/18 Objective PUL Vital signs: Last Vital Signs Temp 98.8 F 01/23/18 07:30 Pulse 86 01/23/18 11:30 Resp 21 01/23/18 11:35 BP 154/82 01/23/18 11:30 Pulse Ox 96 01/23/18 11:35 Ventilator Settings Ventilator Settings: Ventilator Settings, Last 8 Hours Ventilator Mode VC+ Ventilator Mode VC+ Ventilator Mode VC+ Ventilator Mode VC+ Ventilator Mode VC+ Ventilator Mode VC+ Ventilator Mode VC+ Ventilator Mode VC+ Ventilator Mode A/C Ventilator Mode A/C Ventilator Tidal Volume 550 Setting Ventilator Tidal Volume 550 Setting Ventilator Tidal Volume 550 Setting Ventilator Tidal Volume 550 Setting Ventilator Tidal Volume 550 Setting Ventilator Tidal Volume 550 Setting Ventilator Tidal Volume 550 Setting Ventilator Tidal Volume 550 Setting Ventilator Tidal Volume 550 Setting Ventilator Tidal Volume 550 Setting Ventilator Tidal Volume 550 Setting Ventilator Respiratory Rate 10 Setting Ventilator Respiratory Rate 10 Setting Ventilator Respiratory Rate 10 Setting Ventilator Respiratory Rate 10 Setting Ventilator Respiratory Rate 10 Setting Ventilator Respiratory Rate 10 Setting Ventilator Respiratory Rate 10 Setting Ventilator Respiratory Rate 10 Setting Ventilator Respiratory Rate 10 Setting Ventilator Respiratory Rate 10 Setting Ventilator Respiratory Rate 10 Setting Actual Respiratory Rate 21 Actual Respiratory Rate 12 Actual Respiratory Rate 14 Actual Respiratory Rate 16 Actual Respiratory Rate 11 Actual Respiratory Rate 12 Actual Respiratory Rate 14 Actual Respiratory Rate 12 Actual Respiratory Rate 10 Positive End Expiratory 5 Pressure Positive End Expiratory 5 Pressure Positive End Expiratory 5 Pressure Positive End Expiratory 5 Pressure Positive End Expiratory 5 Pressure Positive End Expiratory 5 Pressure Positive End Expiratory 5 Pressure Positive End Expiratory 5 Pressure Positive End Expiratory 5 Pressure Positive End Expiratory 5 Pressure Positive End Expiratory 5 Pressure Peak Inspiratory Airway 28 Pressure Peak Inspiratory Airway 19 Pressure Peak Inspiratory Airway 27 Pressure Peak Inspiratory Airway 24 Pressure Peak Inspiratory Airway 26 Pressure Peak Inspiratory Airway 23 Pressure Peak Inspiratory Airway 22 Pressure Peak Inspiratory Airway 27 Pressure Peak Inspiratory Airway 29 Pressure Peak Inspiratory Airway 32 Pressure Results - Laboratory Findings CBC and BMP: 01/23/18 03:43 01/23/18 03:43 ABG ABG pH 7.45 pH Units (7.32-7.45) 01/23/18 04:01 ABG pCO2 49 mmHg (35-45) H 01/23/18 04:01 ABG pO2 66 mmHg (85-104) L 01/23/18 04:01 ABG O2 Saturation 93 % (95-98) L 01/23/18 04:01 PT/INR, D-dimer PT 10.8 Seconds (9.4-12.1) 01/22/18 11:48 Abnormal lab findings: Abnormal lab results WBC 11.9 K/mcL (4.3-11.1) H 01/23/18 03:43 RBC 3.23 M/mcL (3.82-4.97) L 01/23/18 03:43 Hgb 9.9 g/dL (11.5-15.4) L 01/23/18 03:43 Hct 31.9 % (35.3-44.9) L 01/23/18 03:43 MCHC 31.0 g/dL (31.6-35.5) L 01/23/18 03:43 Neutrophils # 10.2 K/mcL (1.6-8.9) H 01/23/18 03:43 ABG pCO2 49 mmHg (35-45) H 01/23/18 04:01 ABG pO2 66 mmHg (85-104) L 01/23/18 04:01 ABG HCO3 34 mEq/L (21-27) H 01/23/18 04:01 ABG Total CO2 36 mEq/L (20-26) H 01/23/18 04:01 ABG O2 Saturation 93 % (95-98) L 01/23/18 04:01 ABG Base Excess 9 mEq/L (-2 to 3) H 01/23/18 04:01 Carbon Dioxide 35 mEq/L (23-29) H 01/23/18 03:43 Creatinine 0.44 mg/dL (0.60-1.20) L 01/23/18 03:43 BUN/Creatinine Ratio 45 (6-26) H 01/23/18 03:43 Calcium 8.4 mg/dL (8.6-10.3) L 01/23/18 03:43 Serum Total Protein 5.5 g/dL (6.4-8.9) L 01/22/18 11:48 Albumin 3.4 g/dL (3.5-5.7) L 01/22/18 11:48 Globulin 2.1 g/dL (2.4-3.5) L 01/22/18 11:48 - Clinical Findings Intake & Output: Intake & Output 01/22/18 01/23/18 01/23/18 23:59 07:59 15:59 Intake Total 1000 / 2000 1000 / 1000 57 / 57 Output Total 730 / 730 315 / 315 Balance 270 / 1270 685 / 685 57 / 57 Weight 62 kg - Attending Attestation I examined this patient and my medical decision-making was reviewed with the Resident Physician. I agree with the documented findings, disposition and treatment plan as described except to the extent set forth below. Patient seen and examined. Labs, radiology, chart personally reviewed. 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 We will continue vent support. Will consider extubation to BiPAP in next day or 2. Cardiovascular: stable GI: Nutrition per dietary and GI prophylaxis per routine Heme: DVT prophylaxis per routine ID: Continue antibiotics and plan to de-escalation Renal; urine out put and renal funtion reviewed Endorcine: blood glucose is monitored Lines: all lines checked and no evidence of infections Skin: skin care to prevent pressure ulcers per nursing routine care
[2018-01-23] MEDS: Nicotine 21 MG PATCH.TD24 TD SCH (08:22)
[2018-01-23] MEDS: Pantoprazole 40 MG VIAL IVP SCH (08:22)
[2018-01-23] MEDS: Levofloxacin 750 MG/150 ML 750 MG/150 ML BAG IVPB SCH (08:23)
[2018-01-23] MEDS ORDERED: Lacri-Lube 3.5 GM TUBE BOTH EYES PRN (11:31)
[2018-01-23] MEDS: Ipratropium/Albuterol Neb 3 ML IH SCH ×4 (11:33→23:38)
[2018-01-23] MEDS: FentaNYL (PF) 1,000 MCG in 0.9 % Sodium Chloride 80 ML IVC SCH (11:51)
[2018-01-23] MEDS: Lacri-Lube 3.5 GM TUBE BOTH EYES SCH ×4 (11:52→23:45)
[2018-01-23] MEDS: *HR* Heparin 5,000 UNIT/ML VIAL SQ SCH (16:53)
[2018-01-23] MEDS: Chlorhexidine Rinse 15 ML MOUTHWASH MM SCH (20:28)
[2018-01-24] MEDS: FentaNYL (PF) 1,000 MCG in 0.9 % Sodium Chloride 80 ML IVC SCH ×2 (01:44→19:21)
[2018-01-24] MEDS: Ipratropium/Albuterol Neb 3 ML IH SCH ×6 (03:36→23:24)
[2018-01-24] MEDS: Lacri-Lube 3.5 GM TUBE BOTH EYES SCH ×6 (03:36→23:47)
[2018-01-24 04:32] LABS: Hematocrit 28.9 % (35.3-44.9); Immature Granulocytes % 0.9 % (0-4); Lymphocytes # 0.3 K/mcL (0.6-4.6); Mean Corpuscular HGB Conc 31.1 g/dL (31.6-35.5); Mean Corpuscular Hemoglobin 30.3 pg (28.0-33.3); Mean Corpuscular Volume 97.3 fL (83.0-100.0); Mean Platelet Volume 9.6 fL (9.4-12.4); Monocytes # 0.2 K/mcL (0.0-1.3); Monocytes % 2.8 %; Neutrophils # 6.2 K/mcL (1.6-8.9); Platelet Count 215 K/mcL (140-400); Red Blood Count 2.97 M/mcL (3.82-4.97); Red Cell Distribution Width 13.4 % (11.5-14.5); Segmented Neutrophils % 92.3 %
[2018-01-24 04:57] LABS: BUN/Creatinine Ratio 63 (6-26); Blood Urea Nitrogen 29 mg/dL (8-23); Calcium 8.5 mg/dL (8.6-10.3); Carbon Dioxide 31 mEq/L (23-29); Chloride 105 mEq/L (98-107); Glucose 162 mg/dL (70-105); Osmolality,Calculated 299 (280-300); Sodium 140 mEq/L (136-145); eGFR For African Americans > 60 (> 60); eGFR For Non-African Americans > 60 (> 60)
[2018-01-24 04:59] LABS: ABG Base Excess 7 mEq/L (-2 to 3); ABG HCO3 34 mEq/L (21-27); ABG Oxygen Saturation 93 % (95-98); ABG PCO2 63 mmHg (35-45); ABG PH 7.34 pH Units (7.32-7.45); ABG PO2 75 mmHg (85-104); ABG TCO2 36 mEq/L (20-26); Blood Gas Modality ASSIST CONTROL; Blood Gas PEEP 5 cm H2O; Blood Gas Respiration Rate 10; Blood Gas VT 550 cc
[2018-01-24] MEDS: *HR* Heparin 5,000 UNIT/ML VIAL SQ SCH ×2 (05:14→16:51)
[2018-01-24] MEDS: Dexmedetomidine HCl 400 MCG/100 ML MLS IVC SCH ×2 (06:26→16:44)
[2018-01-24] MEDS: 0.9 % Sodium Chloride 1,000 ML IVC SCH ×3 (06:34→21:09)
--- NOTE | 2018-01-24 07:53 | Pulmonology Progress Note ---
<Lela Muro M - Last Filed: 01/24/18 11:24> Date of Encounter: 01/24/18 Objective PUL Vital signs: Last Vital Signs Temp 98.4 F 01/24/18 07:00 Pulse 88 01/24/18 11:00 Resp 10 01/24/18 11:00 BP 154/78 01/24/18 11:00 Pulse Ox 94 01/24/18 11:00 Ventilator Settings Ventilator Settings: Ventilator Settings, Last 8 Hours Ventilator Mode VC+ Ventilator Mode VC+ Ventilator Mode VC+ Ventilator Mode VC+ Ventilator Mode VC+ Ventilator Mode VC+ Ventilator Mode VC+ Ventilator Mode VC+ Ventilator Mode VC+ Ventilator Mode VC+ Ventilator Mode VC+ Ventilator Tidal Volume 550 Setting Ventilator Tidal Volume 550 Setting Ventilator Tidal Volume 550 Setting Ventilator Tidal Volume 550 Setting Ventilator Tidal Volume 550 Setting Ventilator Tidal Volume 550 Setting Ventilator Tidal Volume 550 Setting Ventilator Tidal Volume 550 Setting Ventilator Tidal Volume 550 Setting Ventilator Tidal Volume 550 Setting Ventilator Tidal Volume 550 Setting Ventilator Tidal Volume 550 Setting Ventilator Respiratory Rate 10 Setting Ventilator Respiratory Rate 10 Setting Ventilator Respiratory Rate 10 Setting Ventilator Respiratory Rate 10 Setting Ventilator Respiratory Rate 10 Setting Ventilator Respiratory Rate 10 Setting Ventilator Respiratory Rate 10 Setting Ventilator Respiratory Rate 10 Setting Ventilator Respiratory Rate 10 Setting Ventilator Respiratory Rate 10 Setting Ventilator Respiratory Rate 10 Setting Ventilator Respiratory Rate 10 Setting Actual Respiratory Rate 22 Actual Respiratory Rate 16 Actual Respiratory Rate 20 Actual Respiratory Rate 22 Actual Respiratory Rate 17 Actual Respiratory Rate 10 Actual Respiratory Rate 10 Actual Respiratory Rate 10 Positive End Expiratory 5 Pressure Positive End Expiratory 5 Pressure Positive End Expiratory 5 Pressure Positive End Expiratory 5 Pressure Positive End Expiratory 5 Pressure Positive End Expiratory 5 Pressure Positive End Expiratory 5 Pressure Positive End Expiratory 5 Pressure Positive End Expiratory 5 Pressure Positive End Expiratory 5 Pressure Positive End Expiratory 5 Pressure Positive End Expiratory 5 Pressure Peak Inspiratory Airway 32 Pressure Peak Inspiratory Airway 32 Pressure Peak Inspiratory Airway 29 Pressure Peak Inspiratory Airway 25 Pressure Peak Inspiratory Airway 26 Pressure Peak Inspiratory Airway 28 Pressure Results - Laboratory Findings CBC and BMP: 01/24/18 03:46 01/24/18 03:46 ABG ABG pH 7.34 pH Units (7.32-7.45) 01/24/18 04:55 ABG pCO2 63 mmHg (35-45) H 01/24/18 04:55 ABG pO2 75 mmHg (85-104) L 01/24/18 04:55 ABG O2 Saturation 93 % (95-98) L 01/24/18 04:55 PT/INR, D-dimer PT 10.8 Seconds (9.4-12.1) 01/22/18 11:48 Abnormal lab findings: Abnormal lab results RBC 2.97 M/mcL (3.82-4.97) L 01/24/18 03:46 Hgb 9.0 g/dL (11.5-15.4) L 01/24/18 03:46 Hct 28.9 % (35.3-44.9) L 01/24/18 03:46 MCHC 31.1 g/dL (31.6-35.5) L 01/24/18 03:46 Lymphocytes # 0.3 K/mcL (0.6-4.6) L 01/24/18 03:46 ABG pCO2 63 mmHg (35-45) H 01/24/18 04:55 ABG pO2 75 mmHg (85-104) L 01/24/18 04:55 ABG HCO3 34 mEq/L (21-27) H 01/24/18 04:55 ABG Total CO2 36 mEq/L (20-26) H 01/24/18 04:55 ABG O2 Saturation 93 % (95-98) L 01/24/18 04:55 ABG Base Excess 7 mEq/L (-2 to 3) H 01/24/18 04:55 Carbon Dioxide 31 mEq/L (23-29) H 01/24/18 03:46 BUN 29 mg/dL (8-23) H 01/24/18 03:46 Creatinine 0.46 mg/dL (0.60-1.20) L 01/24/18 03:46 BUN/Creatinine Ratio 63 (6-26) H 01/24/18 03:46 Glucose 162 mg/dL (70-105) H 01/24/18 03:46 POC Glucose 174 mg/dL (70-99) H 01/23/18 23:25 Calcium 8.5 mg/dL (8.6-10.3) L 01/24/18 03:46 Serum Total Protein 5.5 g/dL (6.4-8.9) L 01/22/18 11:48 Albumin 3.4 g/dL (3.5-5.7) L 01/22/18 11:48 Globulin 2.1 g/dL (2.4-3.5) L 01/22/18 11:48 - Clinical Findings Intake & Output: Intake & Output 01/23/18 01/24/18 01/24/18 23:59 07:59 15:59 Intake Total 1205 / 1205 1230.5 / 1230.5 Output Total 425 / 425 125 / 125 Balance 780 / 780 1105.5 / 1105.5 Weight 65 kg Consult Discharge Plan - Plan Referrals: NONE,PCP [Primary Care Provider] - - Attending Attestation I examined this patient and my medical decision-making was reviewed with the Resident Physician. I agree with the documented findings, disposition and treatment plan as described except to the extent set forth below. Patient seen and examined. Labs, radiology, chart personally reviewed. 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 We will attempt tomorrow. It will be difficult due to her underlying COPD and an anxiety to get her off the ventilator. Cardiovascular: stable GI: Nutrition per dietary and GI prophylaxis per routine Heme: DVT prophylaxis per routine ID: Continue antibiotics and plan to de-escalation Renal; urine out put and renal funtion reviewed Endorcine: blood glucose is monitored Lines: all lines checked and no evidence of infections Skin: skin care to prevent pressure ulcers per nursing routine care <John Figueroa - Last Filed: 01/24/18 18:47> Date of Encounter: 01/24/18 Time of Encounter: 07:50 Assessment and Plan (1) Acute respiratory failure with hypoxia Current Visit: Yes Status: Acute Presented to ED via EMS for acute respiratory failure - Patient was found unresponsive, cyanotic, and hypoxic at 81%. - Patient was intubated - ABGs 7.40/78/500/48/51/100 7.45/49/66/34/36/93 7.34/63/65/34/36/93 - Currently on the following vent settings: Inspired O2 45, tidal volume 550, PEEP of 5 - Fentanyl and Versed for sedation CTA of the chest obtained on 01/22/18 demonstrated the following: - No pulmonary embolus is identified - 12 mm nodule in the anterior RUL is concerning; Correlate with any prior outside imaging; otherwise, consider PET-CT and/or biopsy at this time - No significant mediastinal adenopathy - 3 cm abdominal aortic aneurysm - Cholelithiasis Plan: - Continuous telemetry and pulse oximetry - Patient on precedex - CPAP today (2) COPD (chronic obstructive pulmonary disease) Current Visit: Yes Status: Acute Patient has a known history of COPD - Home medications include Ventolin HFA, Spiriva, Symbicort - Currently on mechanical ventilation - Continuous pulse oximetry - Symbicort 160/4.52 puffs inhaled BIDR ALBERTO Qualifiers: Qualified Code(s): J44.9 - Chronic obstructive pulmonary disease, unspecified (3) Altered mental status Current Visit: Yes Status: Acute Patient was completely nonresponsive when EMS arrived CT scan of the head/brain without contrast on 01/22/18 demonstrated the following : - No convincing acute intracranial abnormality - Scattered atherosclerosis - There is scattered opacification of the nasal cavity and nasopharynx - Trace right mastoid effusion Qualifiers: Qualified Code(s): R41.82 - Altered mental status, unspecified (4) Seizure disorder Current Visit: Yes Status: Acute Patient has a known history of seizures - Normally takes Keppra 500 mg by mouth every 12 hours, venlafaxine 150 mg by mouth daily (5) Essential hypertension Current Visit: Yes Status: Acute Patient has a known history of HTN - Home meds include Zestril 40 mg PO daily and Cardizem CD 180 mg PO daily (6) Hyperkalemia Current Visit: Yes Status: Acute - On arrival, laboratory analysis demonstrated elevated potassium level at 5.2 - Resolved (7) Tobacco abuse Current Visit: Yes Status: Acute Per chart review, patient is a pack per day smoker Plan: -Nicotine patch (8) DVT prophylaxis Current Visit: Yes Status: Acute - Heparin 5000 subcutaneous every 12 Subjective Principal diagnosis: Acute respiratory failure with hypoxia Interval history: Patient was seen and examined at bedside this morning. Currently asleep, intubated and sedated. On fentanyl and precedex for sedation. Plan for CPAP today. Objective PUL Vital signs: Last Vital Signs Temp 98.1 F 01/24/18 03:00 Pulse 105 01/24/18 06:00 Resp 22 01/24/18 06:00 BP 129/67 01/24/18 06:00 Pulse Ox 90 01/24/18 06:00 General appearance: no acute distress, asleep Neck: supple Effort: normal Auscultation: bilateral: diminished breath sounds Cardiovascular: irregular rhythm (tachycardic) Integumentary: normal Musculoskeletal: no deformities Ventilator Settings Ventilator Settings: Ventilator Settings, Last 8 Hours Ventilator Mode VC+ Ventilator Mode VC+ Ventilator Mode VC+ Ventilator Mode VC+ Ventilator Mode VC+ Ventilator Mode VC+ Ventilator Mode VC+ Ventilator Mode VC+ Ventilator Mode VC+ Ventilator Mode VC+ Ventilator Mode VC+ Ventilator Tidal Volume 550 Setting Ventilator Tidal Volume 550 Setting Ventilator Tidal Volume 550 Setting Ventilator Tidal Volume 550 Setting Ventilator Tidal Volume 550 Setting Ventilator Tidal Volume 550 Setting Ventilator Tidal Volume 550 Setting Ventilator Tidal Volume 550 Setting Ventilator Tidal Volume 550 Setting Ventilator Tidal Volume 550 Setting Ventilator Tidal Volume 550 Setting Ventilator Respiratory Rate 10 Setting Ventilator Respiratory Rate 10 Setting Ventilator Respiratory Rate 10 Setting Ventilator Respiratory Rate 10 Setting Ventilator Respiratory Rate 10 Setting Ventilator Respiratory Rate 10 Setting Ventilator Respiratory Rate 10 Setting Ventilator Respiratory Rate 10 Setting Ventilator Respiratory Rate 10 Setting Ventilator Respiratory Rate 10 Setting Ventilator Respiratory Rate 10 Setting Actual Respiratory Rate 22 Actual Respiratory Rate 17 Actual Respiratory Rate 10 Actual Respiratory Rate 10 Actual Respiratory Rate 10 Actual Respiratory Rate 10 Actual Respiratory Rate 10 Actual Respiratory Rate 15 Actual Respiratory Rate 10 Actual Respiratory Rate 10 Positive End Expiratory 5 Pressure Positive End Expiratory 5 Pressure Positive End Expiratory 5 Pressure Positive End Expiratory 5 Pressure Positive End Expiratory 5 Pressure Positive End Expiratory 5 Pressure Positive End Expiratory 5 Pressure Positive End Expiratory 5 Pressure Positive End Expiratory 5 Pressure Positive End Expiratory 5 Pressure Positive End Expiratory 5 Pressure Peak Inspiratory Airway 32 Pressure Peak Inspiratory Airway 29 Pressure Peak Inspiratory Airway 25 Pressure Peak Inspiratory Airway 26 Pressure Peak Inspiratory Airway 28 Pressure Peak Inspiratory Airway 26 Pressure Peak Inspiratory Airway 26 Pressure Peak Inspiratory Airway 30 Pressure Peak Inspiratory Airway 28 Pressure Peak Inspiratory Airway 30 Pressure Results - Laboratory Findings CBC and BMP: 01/24/18 03:46 01/24/18 03:46 ABG ABG pH 7.34 pH Units (7.32-7.45) 01/24/18 04:55 ABG pCO2 63 mmHg (35-45) H 01/24/18 04:55 ABG pO2 75 mmHg (85-104) L 01/24/18 04:55 ABG O2 Saturation 93 % (95-98) L 01/24/18 04:55 PT/INR, D-dimer PT 10.8 Seconds (9.4-12.1) 01/22/18 11:48 Abnormal lab findings: Abnormal lab results RBC 2.97 M/mcL (3.82-4.97) L 01/24/18 03:46 Hgb 9.0 g/dL (11.5-15.4) L 01/24/18 03:46 Hct 28.9 % (35.3-44.9) L 01/24/18 03:46 MCHC 31.1 g/dL (31.6-35.5) L 01/24/18 03:46 Lymphocytes # 0.3 K/mcL (0.6-4.6) L 01/24/18 03:46 ABG pCO2 63 mmHg (35-45) H 01/24/18 04:55 ABG pO2 75 mmHg (85-104) L 01/24/18 04:55 ABG HCO3 34 mEq/L (21-27) H 01/24/18 04:55 ABG Total CO2 36 mEq/L (20-26) H 01/24/18 04:55 ABG O2 Saturation 93 % (95-98) L 01/24/18 04:55 ABG Base Excess 7 mEq/L (-2 to 3) H 01/24/18 04:55 Carbon Dioxide 31 mEq/L (23-29) H 01/24/18 03:46 BUN 29 mg/dL (8-23) H 01/24/18 03:46 Creatinine 0.46 mg/dL (0.60-1.20) L 01/24/18 03:46 BUN/Creatinine Ratio 63 (6-26) H 01/24/18 03:46 Glucose 162 mg/dL (70-105) H 01/24/18 03:46 POC Glucose 174 mg/dL (70-99) H 01/23/18 23:25 Calcium 8.5 mg/dL (8.6-10.3) L 01/24/18 03:46 Serum Total Protein 5.5 g/dL (6.4-8.9) L 01/22/18 11:48 Albumin 3.4 g/dL (3.5-5.7) L 01/22/18 11:48 Globulin 2.1 g/dL (2.4-3.5) L 01/22/18 11:48 - Clinical Findings Intake & Output: Intake & Output 01/23/18 01/23/18 01/24/18 15:59 23:59 07:59 Intake Total 1362.5 / 1362.5 1205 / 1205 1230.5 / 1230.5 Output Total 100 / 100 425 / 425 50 / 50 Balance 1262.5 / 1262.5 780 / 780 1180.5 / 1180.5 Weight 65 kg
[2018-01-24] MEDS: Budesonide/Formoterol 160/4.5 MDI IH SCH ×2 (08:07→19:25)
[2018-01-24] MEDS: methylPREDNISolone 125 MG/2 ML VIAL IVP SCH ×3 (09:05→23:55)
[2018-01-24] MEDS: Pantoprazole 40 MG VIAL IVP SCH (09:05)
[2018-01-24] MEDS: Nicotine 21 MG PATCH.TD24 TD SCH (09:05)
[2018-01-24] MEDS: Chlorhexidine Rinse 15 ML MOUTHWASH MM SCH ×2 (09:05→20:59)
[2018-01-24] MEDS: Levofloxacin 750 MG/150 ML 750 MG/150 ML BAG IVPB SCH (09:48)
[2018-01-24] MEDS ORDERED: *HR* Etomidate 20 MG/10 ML AMPUL IVP ONE (10:00)
[2018-01-24] MEDS ORDERED: *HR* Rocuronium Bromide 100 MG/10 ML VIAL IVC ONE (10:00)
[2018-01-24] MEDS ORDERED: clonazePAM 1 MG TABLET PO PRN (10:39)
[2018-01-24] MEDS ORDERED: *HR* Midazolam HCl 2 MG/2 ML VIAL IVP PRN (16:10)
--- NOTE | 2018-01-25 02:11 | Pulmonology Progress Note ---
<Marcelino Haines - Last Filed: 01/25/18 02:05> Date of Encounter: 01/25/18 Time of Encounter: 02:05 Assessment and Plan (1) Acute respiratory failure with hypoxia Current Visit: Yes Status: Acute Presented to ED via EMS for acute respiratory failure - Patient was found unresponsive, cyanotic, and hypoxic at 81%. - Patient was intubated - ABGs 7.40/78/500/48/51/100 7.45/49/66/34/36/93 7.34/63/65/34/36/93 CTA of the chest obtained on 01/22/18 demonstrated the following: - No pulmonary embolus is identified - 12 mm nodule in the anterior RUL is concerning; Correlate with any prior outside imaging; otherwise, consider PET-CT and/or biopsy at this time - No significant mediastinal adenopathy - 3 cm abdominal aortic aneurysm - Cholelithiasis Plan: - Continuous telemetry and pulse oximetry - Continue fentanyl and propofol for sedation as needed - CPAP today (2) COPD (chronic obstructive pulmonary disease) Current Visit: Yes Status: Acute History of COPD, currently on ventilator We will continue home symbicort Patient does not currently demonstrate wheezes or distress We will add duonebs if needed Qualifiers: COPD type: chronic bronchitis Chronic bronchitis type: unspecified Qualified Code(s): J42 - Unspecified chronic bronchitis (3) Seizure disorder Current Visit: Yes Status: Acute Known history of seizures We have been slowly adding medications back Continue IV Keppra, versed, PO Effexor (4) Essential hypertension Current Visit: Yes Status: Acute Currently stable off meds Will continue to monitor Will likely require restarting meds following sedation cessation (5) Tobacco abuse Current Visit: Yes Status: Acute Nicotine patches (6) Altered mental status Current Visit: Yes Status: Acute Patient apparently presented with AMS and coma At this time, the patient is sedated on ventilator We will continue to attempt sedation vacations Qualifiers: Altered mental status type: coma Coma depth: unspecified coma depth Qualified Code(s): R40.20 - Unspecified coma (7) Hyperkalemia Current Visit: Yes Status: Acute (8) DVT prophylaxis Current Visit: Yes Status: Acute SQ Heparin Subjective Principal diagnosis: Acute respiratory failure with hypoxia Interval history: Patient is seen and examined at bedside. She remains intubated with sedation on , however appears to be in no acute distress. There are no significant changes from previous day. Objective PUL Vital signs: Last Vital Signs Temp 97.5 F L 01/25/18 00:00 Pulse 83 01/25/18 01:00 Resp 10 01/25/18 01:14 BP 112/57 01/25/18 01:14 Pulse Ox 100 01/25/18 01:14 General appearance: no acute distress, asleep Eyes: nonicteric ENT: oropharynx moist Neck: supple, no lymphadenopathy, no JVD Effort: normal Auscultation: right: diminished breath sounds, bilateral: clear Cardiovascular: regular rate and rhythm Gastrointestinal: normoactive bowel sounds, soft, non-distended Integumentary: normal Extremities: no cyanosis, no clubbing, pink and warm, no ischemia or petechiae, edema (1+ bl LE edema) Musculoskeletal: no deformities pupils equal and round, unable to assess due to mental status Ventilator Settings Ventilator Settings: Ventilator Settings, Last 8 Hours Ventilator Mode VC+ Ventilator Mode VC+ Ventilator Mode VC+ Ventilator Mode VC+ Ventilator Mode VC+ Ventilator Mode VC+ Ventilator Mode VC+ Ventilator Mode VC+ Ventilator Mode VC+ Ventilator Mode VC+ Ventilator Mode VC+ Ventilator Mode VC+ Ventilator Tidal Volume 550 Setting Ventilator Tidal Volume 550 Setting Ventilator Tidal Volume 550 Setting Ventilator Tidal Volume 550 Setting Ventilator Tidal Volume 550 Setting Ventilator Tidal Volume 550 Setting Ventilator Tidal Volume 550 Setting Ventilator Tidal Volume 550 Setting Ventilator Tidal Volume 550 Setting Ventilator Tidal Volume 550 Setting Ventilator Tidal Volume 550 Setting Ventilator Tidal Volume 550 Setting Ventilator Respiratory Rate 10 Setting Ventilator Respiratory Rate 10 Setting Ventilator Respiratory Rate 10 Setting Ventilator Respiratory Rate 10 Setting Ventilator Respiratory Rate 10 Setting Ventilator Respiratory Rate 10 Setting Ventilator Respiratory Rate 10 Setting Ventilator Respiratory Rate 10 Setting Ventilator Respiratory Rate 10 Setting Ventilator Respiratory Rate 10 Setting Ventilator Respiratory Rate 10 Setting Ventilator Respiratory Rate 10 Setting Actual Respiratory Rate 10 Actual Respiratory Rate 10 Actual Respiratory Rate 10 Actual Respiratory Rate 10 Actual Respiratory Rate 10 Actual Respiratory Rate 10 Actual Respiratory Rate 10 Actual Respiratory Rate 10 Actual Respiratory Rate 12 Actual Respiratory Rate 10 Actual Respiratory Rate 10 Actual Respiratory Rate 11 Positive End Expiratory 5 Pressure Positive End Expiratory 5 Pressure Positive End Expiratory 5 Pressure Positive End Expiratory 5 Pressure Positive End Expiratory 5 Pressure Positive End Expiratory 5 Pressure Positive End Expiratory 5 Pressure Positive End Expiratory 5 Pressure Positive End Expiratory 5 Pressure Positive End Expiratory 5 Pressure Positive End Expiratory 5 Pressure Positive End Expiratory 5 Pressure Peak Inspiratory Airway 28 Pressure Peak Inspiratory Airway 28 Pressure Peak Inspiratory Airway 35 Pressure Peak Inspiratory Airway 31 Pressure Peak Inspiratory Airway 24 Pressure Peak Inspiratory Airway 25 Pressure Peak Inspiratory Airway 25 Pressure Peak Inspiratory Airway 24 Pressure Peak Inspiratory Airway 30 Pressure Peak Inspiratory Airway 36 Pressure Peak Inspiratory Airway 35 Pressure Peak Inspiratory Airway 25 Pressure Results - Laboratory Findings CBC and BMP: 01/24/18 03:46 01/24/18 03:46 ABG ABG pH 7.34 pH Units (7.32-7.45) 01/24/18 04:55 ABG pCO2 63 mmHg (35-45) H 01/24/18 04:55 ABG pO2 75 mmHg (85-104) L 01/24/18 04:55 ABG O2 Saturation 93 % (95-98) L 01/24/18 04:55 PT/INR, D-dimer PT 10.8 Seconds (9.4-12.1) 01/22/18 11:48 Abnormal lab findings: Abnormal lab results RBC 2.97 M/mcL (3.82-4.97) L 01/24/18 03:46 Hgb 9.0 g/dL (11.5-15.4) L 01/24/18 03:46 Hct 28.9 % (35.3-44.9) L 01/24/18 03:46 MCHC 31.1 g/dL (31.6-35.5) L 01/24/18 03:46 Lymphocytes # 0.3 K/mcL (0.6-4.6) L 01/24/18 03:46 ABG pCO2 63 mmHg (35-45) H 01/24/18 04:55 ABG pO2 75 mmHg (85-104) L 01/24/18 04:55 ABG HCO3 34 mEq/L (21-27) H 01/24/18 04:55 ABG Total CO2 36 mEq/L (20-26) H 01/24/18 04:55 ABG O2 Saturation 93 % (95-98) L 01/24/18 04:55 ABG Base Excess 7 mEq/L (-2 to 3) H 01/24/18 04:55 Carbon Dioxide 31 mEq/L (23-29) H 01/24/18 03:46 BUN 29 mg/dL (8-23) H 01/24/18 03:46 Creatinine 0.46 mg/dL (0.60-1.20) L 01/24/18 03:46 BUN/Creatinine Ratio 63 (6-26) H 01/24/18 03:46 Glucose 162 mg/dL (70-105) H 01/24/18 03:46 POC Glucose 140 mg/dL (70-99) H 01/24/18 23:46 Calcium 8.5 mg/dL (8.6-10.3) L 01/24/18 03:46 Serum Total Protein 5.5 g/dL (6.4-8.9) L 01/22/18 11:48 Albumin 3.4 g/dL (3.5-5.7) L 01/22/18 11:48 Globulin 2.1 g/dL (2.4-3.5) L 01/22/18 11:48 - Clinical Findings Intake & Output: Intake & Output 01/24/18 01/24/18 01/25/18 15:59 23:59 07:59 Intake Total 1455 / 1455 1285 / 1285 372 / 372 Output Total 150 / 150 50 / 50 50 / 50 Balance 1305 / 1305 1235 / 1235 322 / 322 Consult Discharge Plan - Plan Referrals: NONE,PCP [Primary Care Provider] - <Lela Muro M - Last Filed: 01/25/18 08:08> Date of Encounter: 01/25/18 Objective PUL Vital signs: Last Vital Signs Temp 98.6 F 01/25/18 07:26 Pulse 93 01/25/18 07:00 Resp 16 01/25/18 07:59 BP 124/67 01/25/18 07:59 Pulse Ox 97 01/25/18 07:59 Ventilator Settings Ventilator Settings: Ventilator Settings, Last 8 Hours Ventilator Mode CPAP Ventilator Mode VC+ Ventilator Mode VC+ Ventilator Mode VC+ Ventilator Mode VC+ Ventilator Mode VC+ Ventilator Mode VC+ Ventilator Mode VC+ Ventilator Mode VC+ Ventilator Mode VC+ Ventilator Mode VC+ Ventilator Tidal Volume 550 Setting Ventilator Tidal Volume 550 Setting Ventilator Tidal Volume 550 Setting Ventilator Tidal Volume 550 Setting Ventilator Tidal Volume 550 Setting Ventilator Tidal Volume 550 Setting Ventilator Tidal Volume 550 Setting Ventilator Tidal Volume 550 Setting Ventilator Tidal Volume 550 Setting Ventilator Tidal Volume 550 Setting Ventilator Respiratory Rate 10 Setting Ventilator Respiratory Rate 10 Setting Ventilator Respiratory Rate 10 Setting Ventilator Respiratory Rate 10 Setting Ventilator Respiratory Rate 10 Setting Ventilator Respiratory Rate 10 Setting Ventilator Respiratory Rate 10 Setting Ventilator Respiratory Rate 10 Setting Ventilator Respiratory Rate 10 Setting Ventilator Respiratory Rate 10 Setting Actual Respiratory Rate 16 Actual Respiratory Rate 12 Actual Respiratory Rate 21 Actual Respiratory Rate 18 Actual Respiratory Rate 16 Actual Respiratory Rate 10 Actual Respiratory Rate 10 Actual Respiratory Rate 10 Actual Respiratory Rate 10 Actual Respiratory Rate 10 Positive End Expiratory 5 Pressure Positive End Expiratory 5 Pressure Positive End Expiratory 5 Pressure Positive End Expiratory 5 Pressure Positive End Expiratory 5 Pressure Positive End Expiratory 5 Pressure Positive End Expiratory 5 Pressure Positive End Expiratory 5 Pressure Positive End Expiratory 5 Pressure Positive End Expiratory 5 Pressure Positive End Expiratory 5 Pressure Peak Inspiratory Airway 20 Pressure Peak Inspiratory Airway 36 Pressure Peak Inspiratory Airway 36 Pressure Peak Inspiratory Airway 29 Pressure Peak Inspiratory Airway 28 Pressure Peak Inspiratory Airway 31 Pressure Peak Inspiratory Airway 27 Pressure Peak Inspiratory Airway 25 Pressure Peak Inspiratory Airway 28 Pressure Peak Inspiratory Airway 28 Pressure Results - Laboratory Findings CBC and BMP: 01/25/18 04:00 01/25/18 04:00 ABG ABG pH 7.35 pH Units (7.32-7.45) 01/25/18 04:47 ABG pCO2 52 mmHg (35-45) H 01/25/18 04:47 ABG pO2 68 mmHg (85-104) L 01/25/18 04:47 ABG O2 Saturation 92 % (95-98) L 01/25/18 04:47 PT/INR, D-dimer PT 10.8 Seconds (9.4-12.1) 01/22/18 11:48 Abnormal lab findings: Abnormal lab results WBC 14.7 K/mcL (4.3-11.1) H D 01/25/18 04:00 RBC 3.06 M/mcL (3.82-4.97) L 01/25/18 04:00 Hgb 9.6 g/dL (11.5-15.4) L 01/25/18 04:00 Hct 30.3 % (35.3-44.9) L 01/25/18 04:00 MPV 9.3 fL (9.4-12.4) L 01/25/18 04:00 Neutrophils # 13.7 K/mcL (1.6-8.9) H 01/25/18 04:00 Lymphocytes # 0.3 K/mcL (0.6-4.6) L 01/25/18 04:00 ABG pCO2 52 mmHg (35-45) H 01/25/18 04:47 ABG pO2 68 mmHg (85-104) L 01/25/18 04:47 ABG HCO3 29 mEq/L (21-27) H 01/25/18 04:47 ABG Total CO2 30 mEq/L (20-26) H 01/25/18 04:47 ABG O2 Saturation 92 % (95-98) L 01/25/18 04:47 BUN 39 mg/dL (8-23) H 01/25/18 04:00 Creatinine 0.53 mg/dL (0.60-1.20) L 01/25/18 04:00 BUN/Creatinine Ratio 74 (6-26) H 01/25/18 04:00 Glucose 123 mg/dL (70-105) H 01/25/18 04:00 POC Glucose 140 mg/dL (70-99) H 01/24/18 23:46 Calcium 8.4 mg/dL (8.6-10.3) L 01/25/18 04:00 Serum Total Protein 5.5 g/dL (6.4-8.9) L 01/22/18 11:48 Albumin 3.4 g/dL (3.5-5.7) L 01/22/18 11:48 Globulin 2.1 g/dL (2.4-3.5) L 01/22/18 11:48 - Clinical Findings Intake & Output: Intake & Output 01/24/18 01/25/18 01/25/18 23:59 07:59 15:59 Intake Total 1285 / 1285 1602 / 1602 Output Total 50 / 50 225 / 225 Balance 1235 / 1235 1377 / 1377 - Attending Attestation I examined this patient and my medical decision-making was reviewed with the Resident Physician. I agree with the documented findings, disposition and treatment plan as described except to the extent set forth below. Patient seen and examined. Labs, radiology, chart personally reviewed. 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 Pulmonary: Acceptable oxygenation and ventilation. Patient still very anxious and most likely we will extubated to BiPAP Cardiovascular: stable GI: Nutrition per dietary and GI prophylaxis per routine Heme: DVT prophylaxis per routine ID: Continue antibiotics and plan to de-escalation Renal; urine out put and renal funtion reviewed Endorcine: blood glucose is monitored Lines: all lines checked and no evidence of infections Skin: skin care to prevent pressure ulcers per nursing routine care
[2018-01-25] MEDS: Ipratropium/Albuterol Neb 3 ML IH SCH ×6 (03:15→23:22)
[2018-01-25 04:34] LABS: Basophils % 0.1 %; Hematocrit 30.3 % (35.3-44.9); Hemoglobin 9.6 g/dL (11.5-15.4); Immature Granulocytes % 0.9 % (0-4); Lymphocytes # 0.3 K/mcL (0.6-4.6); Lymphocytes % 1.9 %; Mean Corpuscular HGB Conc 31.7 g/dL (31.6-35.5); Mean Corpuscular Hemoglobin 31.4 pg (28.0-33.3); Mean Platelet Volume 9.3 fL (9.4-12.4); Monocytes # 0.6 K/mcL (0.0-1.3); Monocytes % 3.8 %; Platelet Count 223 K/mcL (140-400); Red Blood Count 3.06 M/mcL (3.82-4.97); Segmented Neutrophils % 93.3 %
[2018-01-25 04:35] LABS: Neutrophils # 13.7 K/mcL (1.6-8.9)
[2018-01-25 04:50] LABS: ABG Base Excess 2 mEq/L (-2 to 3); ABG HCO3 29 mEq/L (21-27); ABG Oxygen Saturation 92 % (95-98); ABG PCO2 52 mmHg (35-45); ABG PH 7.35 pH Units (7.32-7.45); ABG PO2 68 mmHg (85-104); ABG TCO2 30 mEq/L (20-26); Blood Gas Modality ASSIST CONTROL; Blood Gas PEEP 5 cm H2O; Blood Gas Respiration Rate 10; Blood Gas VT 550 cc
[2018-01-25 04:53] LABS: BUN/Creatinine Ratio 74 (6-26); Blood Urea Nitrogen 39 mg/dL (8-23); Calcium 8.4 mg/dL (8.6-10.3); Carbon Dioxide 28 mEq/L (23-29); Chloride 106 mEq/L (98-107); Glucose 123 mg/dL (70-105); Osmolality,Calculated 299 (280-300); Potassium 4.3 mEq/L (3.5-5.1); Sodium 139 mEq/L (136-145); eGFR For African Americans > 60 (> 60); eGFR For Non-African Americans > 60 (> 60)
[2018-01-25] MEDS: Lacri-Lube 3.5 GM TUBE BOTH EYES SCH ×2 (04:57→08:10)
[2018-01-25] MEDS: *HR* Heparin 5,000 UNIT/ML VIAL SQ SCH ×2 (05:27→17:54)
[2018-01-25] MEDS: 0.9 % Sodium Chloride 1,000 ML IVC SCH (05:30)
[2018-01-25] MEDS: Dexmedetomidine HCl 400 MCG/100 ML MLS IVC SCH (07:22)
[2018-01-25] MEDS: Budesonide/Formoterol 160/4.5 MDI IH SCH ×2 (08:00→19:57)
[2018-01-25] MEDS: methylPREDNISolone 125 MG/2 ML VIAL IVP SCH ×3 (08:09→23:11)
[2018-01-25] MEDS: Nicotine 21 MG PATCH.TD24 TD SCH (08:46)
[2018-01-25] MEDS: Levofloxacin 750 MG/150 ML 750 MG/150 ML BAG IVPB SCH (08:47)
[2018-01-25] MEDS: Chlorhexidine Rinse 15 ML MOUTHWASH MM SCH (08:48)
[2018-01-25] MEDS: Pantoprazole 40 MG VIAL IVP SCH (08:54)
--- NOTE | 2018-01-25 17:45 | Electrocardiograph Report ---
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
[2018-01-25] MEDS: levETIRAcetam 250 MG TABLET PO SCH (19:56)
[2018-01-25] MEDS ORDERED: Acetaminophen 325 MG TABLET PO ONE (22:02)
--- NOTE | 2018-01-26 02:18 | Pulmonology Progress Note ---
<Marcelino Haines - Last Filed: 01/26/18 02:34> Date of Encounter: 01/26/18 Time of Encounter: 02:16 Assessment and Plan (1) Acute respiratory failure with hypoxia Current Visit: Yes Status: Acute Presented to ED via EMS for acute respiratory failure She was successfully extubated without complication yesterday Continues to oxygenate appropriately on nasal cannula We will continue to monitor, manage anxiety (2) COPD (chronic obstructive pulmonary disease) Current Visit: Yes Status: Acute History of COPD, extubated successfully yesterday We will continue home symbicort Patient does not currently demonstrate wheezes or distress We will add duonebs if needed Qualifiers: COPD type: chronic bronchitis Chronic bronchitis type: unspecified Qualified Code(s): J42 - Unspecified chronic bronchitis (3) Seizure disorder Current Visit: Yes Status: Acute Known history of seizures We have been slowly adding medications back Continue IV Keppra, versed, PO Effexor (4) Essential hypertension Current Visit: Yes Status: Acute Blood pressure has continued to rise following cessation of sedation I will begin to add home medications as tolerated (5) Tobacco abuse Current Visit: Yes Status: Acute Nicotine patches (6) Altered mental status Current Visit: Yes Status: Acute Patient apparently presented with AMS and coma At this time the patient is off sedation, but remains anxious Continued use of precedex at this time Wean as appropriate Qualifiers: Altered mental status type: coma Coma depth: unspecified coma depth Qualified Code(s): R40.20 - Unspecified coma (7) DVT prophylaxis Current Visit: Yes Status: Acute SQ Heparin Subjective Principal diagnosis: Acute respiratory failure with hypoxia Interval history: Patient is seen and examined at bedside. She was successfully extubated yesterday without complication. She says that she is feeling pretty well, has no acute complaints today. Objective PUL Vital signs: Last Vital Signs Temp 97.9 F 01/26/18 00:28 Pulse 90 01/26/18 02:00 Resp 14 01/26/18 02:00 BP 164/81 01/26/18 02:00 Pulse Ox 98 01/26/18 02:00 General appearance: no acute distress, alert and oriented 3 Eyes: nonicteric ENT: oropharynx moist Neck: supple, no lymphadenopathy, no JVD Effort: normal Auscultation: Clear to auscultation bilaterally Cardiovascular: regular rate and rhythm Gastrointestinal: normoactive bowel sounds, soft, non-distended Integumentary: normal Extremities: no cyanosis, no clubbing, pink and warm, no ischemia or petechiae, edema (1+ bl LE edema) Musculoskeletal: no deformities Neuro: Patient does appear to have fine tremor in all extremities Results - Laboratory Findings CBC and BMP: 01/25/18 04:00 01/25/18 04:00 ABG ABG pH 7.35 pH Units (7.32-7.45) 01/25/18 04:47 ABG pCO2 52 mmHg (35-45) H 01/25/18 04:47 ABG pO2 68 mmHg (85-104) L 01/25/18 04:47 ABG O2 Saturation 92 % (95-98) L 01/25/18 04:47 PT/INR, D-dimer PT 10.8 Seconds (9.4-12.1) 01/22/18 11:48 Abnormal lab findings: Abnormal lab results WBC 14.7 K/mcL (4.3-11.1) H D 01/25/18 04:00 RBC 3.06 M/mcL (3.82-4.97) L 01/25/18 04:00 Hgb 9.6 g/dL (11.5-15.4) L 01/25/18 04:00 Hct 30.3 % (35.3-44.9) L 01/25/18 04:00 MPV 9.3 fL (9.4-12.4) L 01/25/18 04:00 Neutrophils # 13.7 K/mcL (1.6-8.9) H 01/25/18 04:00 Lymphocytes # 0.3 K/mcL (0.6-4.6) L 01/25/18 04:00 ABG pCO2 52 mmHg (35-45) H 01/25/18 04:47 ABG pO2 68 mmHg (85-104) L 01/25/18 04:47 ABG HCO3 29 mEq/L (21-27) H 01/25/18 04:47 ABG Total CO2 30 mEq/L (20-26) H 01/25/18 04:47 ABG O2 Saturation 92 % (95-98) L 01/25/18 04:47 BUN 39 mg/dL (8-23) H 01/25/18 04:00 Creatinine 0.53 mg/dL (0.60-1.20) L 01/25/18 04:00 BUN/Creatinine Ratio 74 (6-26) H 01/25/18 04:00 Glucose 123 mg/dL (70-105) H 01/25/18 04:00 Calcium 8.4 mg/dL (8.6-10.3) L 01/25/18 04:00 Serum Total Protein 5.5 g/dL (6.4-8.9) L 01/22/18 11:48 Albumin 3.4 g/dL (3.5-5.7) L 01/22/18 11:48 Globulin 2.1 g/dL (2.4-3.5) L 01/22/18 11:48 - Clinical Findings Intake & Output: Intake & Output 01/25/18 01/25/18 01/26/18 15:59 23:59 07:59 Intake Total 93.9 / 93.9 240 / 240 Output Total 300 / 300 150 / 150 150 / 150 Balance -206.1 / -206.1 90 / 90 -150 / -150 Weight 71.1 kg - VTE Documentation of Mechanical Device: Intermittent pneumatic compression device Consult Discharge Plan - Plan Referrals: NONE,PCP [Primary Care Provider] - <Lela Muro - Last Filed: 01/26/18 08:30> Date of Encounter: 01/26/18 Objective PUL Vital signs: Last Vital Signs Temp 98.4 F 01/26/18 08:00 Pulse 103 01/26/18 08:00 Resp 20 01/26/18 08:07 BP 144/74 01/26/18 08:00 Pulse Ox 93 01/26/18 08:07 Results - Laboratory Findings CBC and BMP: 01/26/18 05:43 01/26/18 05:15 ABG ABG pH 7.35 pH Units (7.32-7.45) 01/25/18 04:47 ABG pCO2 52 mmHg (35-45) H 01/25/18 04:47 ABG pO2 68 mmHg (85-104) L 01/25/18 04:47 ABG O2 Saturation 92 % (95-98) L 01/25/18 04:47 PT/INR, D-dimer PT 10.8 Seconds (9.4-12.1) 01/22/18 11:48 Abnormal lab findings: Abnormal lab results WBC 12.4 K/mcL (4.3-11.1) H 01/26/18 05:43 RBC 3.10 M/mcL (3.82-4.97) L 01/26/18 05:43 Hgb 9.6 g/dL (11.5-15.4) L 01/26/18 05:43 Hct 30.4 % (35.3-44.9) L 01/26/18 05:43 Neutrophils # 11.7 K/mcL (1.6-8.9) H 01/26/18 05:43 Lymphocytes # 0.3 K/mcL (0.6-4.6) L 01/26/18 05:43 ABG pCO2 52 mmHg (35-45) H 01/25/18 04:47 ABG pO2 68 mmHg (85-104) L 01/25/18 04:47 ABG HCO3 29 mEq/L (21-27) H 01/25/18 04:47 ABG Total CO2 30 mEq/L (20-26) H 01/25/18 04:47 ABG O2 Saturation 92 % (95-98) L 01/25/18 04:47 Sodium 132 mEq/L (136-145) L 01/26/18 05:15 BUN 35 mg/dL (8-23) H 01/26/18 05:15 BUN/Creatinine Ratio 56 (6-26) H 01/26/18 05:15 Glucose 110 mg/dL (70-105) H 01/26/18 05:15 Calcium 8.4 mg/dL (8.6-10.3) L 01/26/18 05:15 Serum Total Protein 5.5 g/dL (6.4-8.9) L 01/22/18 11:48 Albumin 3.4 g/dL (3.5-5.7) L 01/22/18 11:48 Globulin 2.1 g/dL (2.4-3.5) L 01/22/18 11:48 - Clinical Findings Intake & Output: Intake & Output 01/25/18 01/26/18 01/26/18 23:59 07:59 15:59 Intake Total 240 / 240 240 / 240 Output Total 150 / 150 350 / 350 700 / 700 Balance 90 / 90 -110 / -110 -700 / -700 Weight 71.1 kg - Attending Attestation I examined this patient and my medical decision-making was reviewed with the Resident Physician. I agree with the documented findings, disposition and treatment plan as described except to the extent set forth below. Patient seen and examined. Labs, radiology, chart personally reviewed. 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 Patient was advised to quit smoking. Patient will need outpatient follow-up. Cardiovascular: stable GI: Nutrition per dietary and GI prophylaxis per routine Heme: DVT prophylaxis per routine ID: Continue antibiotics and plan to de-escalation Renal; urine out put and renal funtion reviewed Endorcine: blood glucose is monitored Lines: all lines checked and no evidence of infections Skin: skin care to prevent pressure ulcers per nursing routine care Physical therapy evaluation She is hemodynamically stable to be transferred to the floor
[2018-01-26] MEDS: Ipratropium/Albuterol Neb 3 ML IH SCH ×6 (03:33→23:28)
[2018-01-26] MEDS: *HR* Heparin 5,000 UNIT/ML VIAL SQ SCH ×2 (05:04→17:58)
[2018-01-26 05:46] LABS: BUN/Creatinine Ratio 56 (6-26); Blood Urea Nitrogen 35 mg/dL (8-23); Calcium 8.4 mg/dL (8.6-10.3); Carbon Dioxide 28 mEq/L (23-29); Chloride 101 mEq/L (98-107); Glucose 110 mg/dL (70-105); Osmolality,Calculated 283 (280-300); Potassium 4.7 mEq/L (3.5-5.1); Sodium 132 mEq/L (136-145); eGFR For African Americans > 60 (> 60); eGFR For Non-African Americans > 60 (> 60)
[2018-01-26 06:12] LABS: Basophils % 0.2 %; Hematocrit 30.4 % (35.3-44.9); Hemoglobin 9.6 g/dL (11.5-15.4); Immature Granulocytes % 0.6 % (0-4); Lymphocytes # 0.3 K/mcL (0.6-4.6); Lymphocytes % 2.3 %; Mean Corpuscular HGB Conc 31.6 g/dL (31.6-35.5); Mean Corpuscular Volume 98.1 fL (83.0-100.0); Mean Platelet Volume 10.1 fL (9.4-12.4); Monocytes # 0.4 K/mcL (0.0-1.3); Monocytes % 3.1 %; Neutrophils # 11.7 K/mcL (1.6-8.9); Platelet Count 235 K/mcL (140-400); Red Cell Distribution Width 14.2 % (11.5-14.5); Segmented Neutrophils % 93.8 %
[2018-01-26] MEDS: Budesonide/Formoterol 160/4.5 MDI IH SCH ×3 (08:05→20:28)
[2018-01-26] MEDS: levETIRAcetam 250 MG TABLET PO SCH ×2 (08:58→20:14)
[2018-01-26] MEDS: Pantoprazole 40 MG VIAL IVP SCH (09:00)
[2018-01-26] MEDS ORDERED: Lisinopril 20 MG TABLET PO SCH (09:00)
[2018-01-26] MEDS: methylPREDNISolone 125 MG/2 ML VIAL IVP SCH ×2 (09:00→16:02)
[2018-01-26] MEDS: Nicotine 21 MG PATCH.TD24 TD SCH (09:00)
[2018-01-26] MEDS ORDERED: Diltiazem CD (24hr) 180 MG CAPSULE PO SCH (09:00)
[2018-01-26] MEDS ORDERED: *HR* Midazolam HCl 2 MG/2 ML VIAL IVP PRN (09:41)
[2018-01-26] MEDS ORDERED: Naloxone 0.4 MG/ML INJ IVP PRN (09:41)
[2018-01-26] MEDS: Levofloxacin 750 MG/150 ML 750 MG/150 ML BAG IVPB SCH (09:46)
[2018-01-26] MEDS: clonazePAM 1 MG TABLET PO PRN (12:23)
[2018-01-27] MEDS: methylPREDNISolone 125 MG/2 ML VIAL IVP SCH ×4 (01:07→23:24)
[2018-01-27] MEDS: Ipratropium/Albuterol Neb 3 ML IH SCH ×5 (04:11→20:34)
[2018-01-27 04:13] LABS: Basophils % 0.1 %; Hematocrit 31.6 % (35.3-44.9); Hemoglobin 10.1 g/dL (11.5-15.4); Immature Granulocytes % 1.4 % (0-4); Lymphocytes # 0.3 K/mcL (0.6-4.6); Mean Corpuscular Hemoglobin 31.4 pg (28.0-33.3); Mean Corpuscular Volume 98.1 fL (83.0-100.0); Mean Platelet Volume 9.6 fL (9.4-12.4); Monocytes # 0.4 K/mcL (0.0-1.3); Monocytes % 3.4 %; Neutrophils # 9.7 K/mcL (1.6-8.9); Platelet Count 221 K/mcL (140-400); Red Blood Count 3.22 M/mcL (3.82-4.97); Red Cell Distribution Width 14.2 % (11.5-14.5); Segmented Neutrophils % 92.1 %
[2018-01-27 04:32] LABS: BUN/Creatinine Ratio 46 (6-26); Blood Urea Nitrogen 27 mg/dL (8-23); Calcium 8.2 mg/dL (8.6-10.3); Carbon Dioxide 33 mEq/L (23-29); Chloride 103 mEq/L (98-107); Glucose 148 mg/dL (70-105); Osmolality,Calculated 292 (280-300); Potassium 4.5 mEq/L (3.5-5.1); Sodium 137 mEq/L (136-145); eGFR For African Americans > 60 (> 60); eGFR For Non-African Americans > 60 (> 60)
[2018-01-27] MEDS: *HR* Heparin 5,000 UNIT/ML VIAL SQ SCH ×2 (05:35→17:10)
[2018-01-27] MEDS: Lisinopril 20 MG TABLET PO SCH (07:39)
[2018-01-27] MEDS: Diltiazem CD (24hr) 180 MG CAPSULE PO SCH (07:39)
[2018-01-27] MEDS: levETIRAcetam 250 MG TABLET PO SCH ×2 (07:40→19:51)
[2018-01-27] MEDS: Pantoprazole 40 MG VIAL IVP SCH (07:40)
[2018-01-27] MEDS: Nicotine 21 MG PATCH.TD24 TD SCH (07:40)
[2018-01-27] MEDS ORDERED: Levofloxacin 750 MG/150 ML 750 MG/150 ML BAG IVPB SCH (09:00)
[2018-01-27] MEDS: Budesonide/Formoterol 160/4.5 MDI IH SCH ×2 (10:08→20:34)
--- NOTE | 2018-01-27 17:54 | Internal Med Progress Note ---
Date of Encounter: 01/27/18 Time of Encounter: 11:00 - Assessment and plan (1) Acute respiratory failure with hypoxia Current Visit: Yes Status: Acute Assessment and plan: Patient with acute on chronic respiratory failure and was extubated on 01/25/18 currently on supplemental oxygenation without any respiratory distress We will continue to monitor (2) COPD (chronic obstructive pulmonary disease) Current Visit: Yes Status: Acute Assessment and plan: Will continue Solu-Medrol and DuoNeb's Qualifiers: COPD type: chronic bronchitis Chronic bronchitis type: unspecified Qualified Code(s): J42 - Unspecified chronic bronchitis (3) Essential hypertension Current Visit: Yes Status: Acute Assessment and plan: Controlled; continue home medications (4) Seizure disorder Current Visit: Yes Status: Acute (5) Incidental lung nodule, greater than or equal to 8mm Current Visit: Yes Status: Acute Assessment and plan: Chest CTA revealed an incidental finding of 12 mm nodule in the anterior right upper lobe Will need to be monitored as outpatient (6) DVT prophylaxis Current Visit: Yes Status: Acute Assessment and plan: Subcutaneous heparin - Time Spent With Patient Total time spent is greater than 50% in coordination of care (as documented) at patient's floor/unit and/or counseling patient: - Subjective Interval history: Patient with acute on chronic respiratory failure and was extubated on 01/25/18 currently on supplemental oxygenation without any respiratory distress. - Constitutional Vitals: Temp Pulse Resp BP Pulse Ox 98.3 F 90 15 149/75 92 01/27/18 17:23 01/27/18 17:23 01/27/18 17:23 01/27/18 17:23 01/27/18 17:23 General appearance: Present: no acute distress - Respiratory Respiratory exam: Present: CTAB. Absent: accessory muscle use, rales, rhonchi, wheezes - Cardiovascular Cardiovascular exam: Present: RRR, +S1, +S2. Absent: diastolic murmur, gallop, rubs, systolic murmur Internal Medicine: Result - Labs CBC & Chem 7: 01/27/18 04:02 01/27/18 04:02 Labs: Short CBC 01/27/18 Range/Units 04:02 WBC 10.5 (4.3-11.1) K/mcL Hgb 10.1 L (11.5-15.4) g/dL Hct 31.6 L (35.3-44.9) % Plt Count 221 (140-400) K/mcL Neutrophils # 9.7 H (1.6-8.9) K/mcL BMP 01/27/18 04:02 Sodium 137 Potassium 4.5 Chloride 103 Carbon Dioxide 33 H BUN 27 H Creatinine 0.59 L Glucose 148 H Calcium 8.2 L - ABG Interpretation ABG results: ABG ABG pH 7.35 pH Units (7.32-7.45) 01/25/18 04:47 ABG pCO2 52 mmHg (35-45) H 01/25/18 04:47 ABG pO2 68 mmHg (85-104) L 01/25/18 04:47 ABG O2 Saturation 92 % (95-98) L 01/25/18 04:47 PT/INR, D-dimer PT 10.8 Seconds (9.4-12.1) 01/22/18 11:48 - VTE Documentation of Mechanical Device: Intermittent pneumatic compression device Consult Discharge Plan - Plan Referrals: NONE,PCP [Primary Care Provider] -
[2018-01-28] MEDS: Ipratropium/Albuterol Neb 3 ML IH SCH ×7 (00:48→23:05)
[2018-01-28 03:19] LABS: Basophils % 0.1 %; Hemoglobin 9.9 g/dL (11.5-15.4); Immature Granulocytes % 1.9 % (0-4); Immature Platelets 2.6 % (1.1-6.1); Lymphocytes # 0.2 K/mcL (0.6-4.6); Lymphocytes % 2.4 %; Mean Corpuscular HGB Conc 31.9 g/dL (31.6-35.5); Mean Corpuscular Hemoglobin 30.8 pg (28.0-33.3); Mean Corpuscular Volume 96.6 fL (83.0-100.0); Mean Platelet Volume 9.9 fL (9.4-12.4); Monocytes # 0.4 K/mcL (0.0-1.3); Monocytes % 3.9 %; Neutrophils # 8.9 K/mcL (1.6-8.9); Platelet Count 232 K/mcL (140-400); Red Blood Count 3.21 M/mcL (3.82-4.97); Red Cell Distribution Width 13.8 % (11.5-14.5); Segmented Neutrophils % 91.7 %
[2018-01-28 03:42] LABS: BUN/Creatinine Ratio 48 (6-26); Blood Urea Nitrogen 25 mg/dL (8-23); Calcium 8.4 mg/dL (8.6-10.3); Carbon Dioxide 34 mEq/L (23-29); Chloride 102 mEq/L (98-107); Glucose 183 mg/dL (70-105); Osmolality,Calculated 295 (280-300); Potassium 4.6 mEq/L (3.5-5.1); Sodium 138 mEq/L (136-145); eGFR For African Americans > 60 (> 60); eGFR For Non-African Americans > 60 (> 60)
[2018-01-28] MEDS: *HR* Heparin 5,000 UNIT/ML VIAL SQ SCH ×2 (05:29→16:23)
[2018-01-28] MEDS: Budesonide/Formoterol 160/4.5 MDI IH SCH ×2 (07:47→19:33)
[2018-01-28] MEDS: levoFLOXacin 750 MG TABLET PO SCH (08:15)
[2018-01-28] MEDS: levETIRAcetam 250 MG TABLET PO SCH ×2 (08:15→19:59)
[2018-01-28] MEDS: Nicotine 21 MG PATCH.TD24 TD SCH (08:16)
[2018-01-28] MEDS: Diltiazem CD (24hr) 180 MG CAPSULE PO SCH (08:16)
[2018-01-28] MEDS: Lisinopril 20 MG TABLET PO SCH (08:16)
[2018-01-28] MEDS: Pantoprazole 40 MG VIAL IVP SCH (08:17)
[2018-01-28] MEDS: methylPREDNISolone 125 MG/2 ML VIAL IVP SCH ×2 (08:17→16:20)
[2018-01-28] MEDS ORDERED: Lisinopril 20 MG TABLET PO SCH (12:15)
[2018-01-28] MEDS ORDERED: Lisinopril 20 MG TABLET PO ONE (12:58)
--- NOTE | 2018-01-28 18:39 | Internal Med Progress Note ---
Date of Encounter: 01/28/18 Time of Encounter: 11:00 - Assessment and plan (1) Acute respiratory failure with hypoxia Current Visit: Yes Status: Acute Assessment and plan: Patient with acute on chronic respiratory failure and was extubated in the ICU on 01/25/18 currently on supplemental oxygenation without any respiratory distress Patient still with dyspnea on exertion and not moving a lot of air on respiratory exam Will continue Solu-Medrol and DuoNeb's Will continue to monitor (2) COPD (chronic obstructive pulmonary disease) Current Visit: Yes Status: Acute Assessment and plan: Will continue Solu-Medrol and DuoNeb's as above Qualifiers: COPD type: chronic bronchitis Chronic bronchitis type: unspecified Qualified Code(s): J42 - Unspecified chronic bronchitis (3) Essential hypertension Current Visit: Yes Status: Acute Assessment and plan: Controlled; continue home medications (4) Seizure disorder Current Visit: Yes Status: Acute Assessment and plan: Continue home medications (5) Incidental lung nodule, greater than or equal to 8mm Current Visit: Yes Status: Acute Assessment and plan: Chest CTA revealed an incidental finding of 12 mm nodule in the anterior right upper lobe Will need to be monitored as outpatient (6) DVT prophylaxis Current Visit: Yes Status: Acute Assessment and plan: Subcutaneous heparin - Time Spent With Patient Total time spent is greater than 50% in coordination of care (as documented) at patient's floor/unit and/or counseling patient: - Subjective Interval history: Patient with acute on chronic respiratory failure and was transferred from the ICU status post extubation on 01/25/18 currently on supplemental oxygenation without any respiratory distress. - Constitutional Vitals: Temp Pulse Resp BP Pulse Ox 98.4 F 89 20 162/70 94 01/28/18 16:39 01/28/18 16:39 01/28/18 16:39 01/28/18 16:39 01/28/18 16:39 General appearance: Present: no acute distress - Respiratory Respiratory exam: Present: CTAB. Absent: accessory muscle use, rales, rhonchi, wheezes - Cardiovascular Cardiovascular exam: Present: RRR, +S1, +S2. Absent: diastolic murmur, gallop, rubs, systolic murmur Internal Medicine: Result - Labs CBC & Chem 7: 01/28/18 03:10 01/28/18 03:10 Labs: Short CBC 01/28/18 Range/Units 03:10 WBC 9.7 (4.3-11.1) K/mcL Hgb 9.9 L (11.5-15.4) g/dL Hct 31.0 L (35.3-44.9) % Plt Count 232 (140-400) K/mcL Neutrophils # 8.9 (1.6-8.9) K/mcL BMP 01/28/18 03:10 Sodium 138 Potassium 4.6 Chloride 102 Carbon Dioxide 34 H BUN 25 H Creatinine 0.52 L Glucose 183 H Calcium 8.4 L - ABG Interpretation ABG results: ABG ABG pH 7.35 pH Units (7.32-7.45) 01/25/18 04:47 ABG pCO2 52 mmHg (35-45) H 01/25/18 04:47 ABG pO2 68 mmHg (85-104) L 01/25/18 04:47 ABG O2 Saturation 92 % (95-98) L 01/25/18 04:47 PT/INR, D-dimer PT 10.8 Seconds (9.4-12.1) 01/22/18 11:48 - VTE Documentation of Mechanical Device: Intermittent pneumatic compression device Consult Discharge Plan - Plan Referrals: Carla Valenzuela, [employer] [Advanced Practice Nurse] - NONE,PCP [Primary Care Provider] -
[2018-01-28] MEDS: clonazePAM 1 MG TABLET PO PRN (19:59)
[2018-01-29] MEDS: methylPREDNISolone 125 MG/2 ML VIAL IVP SCH ×2 (00:14→07:53)
[2018-01-29] MEDS: Ipratropium/Albuterol Neb 3 ML IH SCH ×6 (03:38→23:20)
[2018-01-29] MEDS: *HR* Heparin 5,000 UNIT/ML VIAL SQ SCH ×2 (05:57→17:39)
[2018-01-29] MEDS: Budesonide/Formoterol 160/4.5 MDI IH SCH ×2 (07:24→19:57)
[2018-01-29] MEDS: levoFLOXacin 750 MG TABLET PO SCH (07:52)
[2018-01-29] MEDS: Lisinopril 20 MG TABLET PO SCH (07:52)
[2018-01-29] MEDS: levETIRAcetam 250 MG TABLET PO SCH ×2 (07:52→20:52)
[2018-01-29] MEDS: Diltiazem CD (24hr) 180 MG CAPSULE PO SCH (07:52)
[2018-01-29] MEDS: Pantoprazole 40 MG VIAL IVP SCH (07:53)
[2018-01-29] MEDS: Nicotine 21 MG PATCH.TD24 TD SCH (07:54)
[2018-01-29] MEDS ORDERED: Sennosides/Docusate Sodium TABLET PO PRN (12:59)
[2018-01-29] MEDS: hydroCHLOROthiazide 25 MG TABLET PO SCH (13:34)
--- NOTE | 2018-01-29 13:55 | Internal Med Progress Note ---
Date of Encounter: 01/29/18 Time of Encounter: 11:40 - Assessment and plan (1) Acute purulent bronchitis Current Visit: Yes Status: Acute Assessment and plan: Mostly bacteria Improved on PO Levaquin (2) Acute respiratory failure with hypoxia Current Visit: Yes Status: Acute Assessment and plan: Patient with acute on chronic respiratory failure and was extubated in the ICU on 01/25/18 Improving slowly switched to PO Steroids today Possible d/c home in AM (3) COPD (chronic obstructive pulmonary disease) Current Visit: Yes Status: Acute Assessment and plan: Improving started tapering steroids cont Duoneb PRN Qualifiers: COPD type: chronic bronchitis Chronic bronchitis type: unspecified Qualified Code(s): J42 - Unspecified chronic bronchitis (4) Seizure disorder Current Visit: Yes Status: Acute Assessment and plan: Continue home medications (5) Essential hypertension Current Visit: Yes Status: Acute Assessment and plan: Controlled; continue home medications (6) DVT prophylaxis Current Visit: Yes Status: Acute Assessment and plan: Subcutaneous heparin (7) Incidental lung nodule, greater than or equal to 8mm Current Visit: Yes Status: Acute Assessment and plan: Chest CTA revealed an incidental finding of 12 mm nodule in the anterior right upper lobe counseled to quit smoking also recommend to f/u with PCP / Pulm as an out pt Need repeat CT of Chest in 6 weeks (8) Tobacco dependence Current Visit: Yes Status: Acute Assessment and plan: Counseled to quit (9) Chronic respiratory failure with hypoxia, on home O2 therapy Current Visit: Yes Status: Chronic - Time Spent With Patient Total time spent is greater than 50% in coordination of care (as documented) at patient's floor/unit and/or counseling patient: - Subjective Interval history: Ms. Joy is a 72 y/o F with known COPD, chronic hypoxic resp failure on 3 lit home O2 dependent, chronic smoker who was brought into our ER on 01/22/18 with unresponsiveness and acute hypoxic resp failure. Pt was intubated on filed. She was admitted into ICU got extubated on 01/25/18. She was placed on high dose IV steroids and empirical abx initially. Now pt states she is back to her baseline. Still has some some SOB and VERA. Denied any CP . No fever / chills. - Constitutional Vitals: Temp Pulse Resp BP Pulse Ox 98.5 F 109 20 184/69 96 01/29/18 10:51 01/29/18 10:51 01/29/18 10:51 01/29/18 10:51 01/29/18 10:51 General appearance: Present: cooperative, mild distress, A&O X 3, answers questions appropriately - Head Head exam: Present: atraumatic, normal inspection - Neck Neck exam general surgery: Present: supple - Respiratory Respiratory exam: Present: decreased breath sounds, respiratory distress (mild) , wheezes. Absent: rales, rhonchi - Cardiovascular Cardiovascular exam: Present: RRR, +S1, +S2. Absent: tachycardia - GI/Abdominal GI/Abdominal exam: Present: normal bowel sounds, soft. Absent: rebound, rigid, tenderness - Extremities Exam Extremities exam: Absent: calf tenderness, pedal edema, tenderness - Back Exam Back exam: Absent: CVA tenderness (L), CVA tenderness (R) - Neurological Exam Neurological exam: Present: alert, oriented X3 - Psychiatric Psychiatric exam: Present: normal affect, normal mood - Skin Skin exam: Absent: rash Internal Medicine: Result - Labs CBC & Chem 7: 01/28/18 03:10 01/28/18 03:10 - ABG Interpretation ABG results: ABG ABG pH 7.35 pH Units (7.32-7.45) 01/25/18 04:47 ABG pCO2 52 mmHg (35-45) H 01/25/18 04:47 ABG pO2 68 mmHg (85-104) L 01/25/18 04:47 ABG O2 Saturation 92 % (95-98) L 01/25/18 04:47 PT/INR, D-dimer PT 10.8 Seconds (9.4-12.1) 01/22/18 11:48 - VTE Documentation of Mechanical Device: Intermittent pneumatic compression device Consult Discharge Plan - Plan Referrals: Carla Valenzuela, [employer] [Advanced Practice Nurse] - NONE,PCP [Primary Care Provider] -
[2018-01-29] MEDS: predniSONE 20 MG TABLET PO SCH (17:39)
[2018-01-29] MEDS: clonazePAM 1 MG TABLET PO PRN (20:52)
[2018-01-30] MEDS: Ipratropium/Albuterol Neb 3 ML IH SCH ×6 (03:25→23:44)
[2018-01-30] MEDS: *HR* Heparin 5,000 UNIT/ML VIAL SQ SCH ×2 (05:38→17:07)
[2018-01-30] MEDS: Budesonide/Formoterol 160/4.5 MDI IH SCH ×2 (07:34→20:32)
[2018-01-30] MEDS: Diltiazem CD (24hr) 240 MG CAPSULE PO SCH (08:19)
[2018-01-30] MEDS: levETIRAcetam 250 MG TABLET PO SCH ×2 (08:19→20:39)
[2018-01-30] MEDS: predniSONE 20 MG TABLET PO SCH ×2 (08:19→17:07)
[2018-01-30] MEDS: Nicotine 21 MG PATCH.TD24 TD SCH (08:20)
[2018-01-30] MEDS: levoFLOXacin 750 MG TABLET PO SCH (08:20)
[2018-01-30] MEDS: hydroCHLOROthiazide 25 MG TABLET PO SCH (08:20)
[2018-01-30] MEDS: Lisinopril 20 MG TABLET PO SCH (08:27)
[2018-01-30] MEDS ORDERED: hydroCHLOROthiazide 25 MG TABLET PO ONE (13:58)
--- NOTE | 2018-01-30 13:58 | Internal Med Progress Note ---
Date of Encounter: 01/30/18 Time of Encounter: 08:30 - Assessment and plan (1) Acute purulent bronchitis Current Visit: Yes Status: Acute Assessment and plan: Mostly bacterial Improved Finished full course of abx PO Levaquin (2) Acute respiratory failure with hypoxia Current Visit: Yes Status: Acute Assessment and plan: Patient with acute on chronic respiratory failure and was extubated in the ICU on 01/25/18 Improving slowly Cont tapering steroids (3) COPD (chronic obstructive pulmonary disease) Current Visit: Yes Status: Acute Assessment and plan: Improving started tapering steroids cont Duoneb PRN Qualifiers: COPD type: chronic bronchitis Chronic bronchitis type: unspecified Qualified Code(s): J42 - Unspecified chronic bronchitis (4) Seizure disorder Current Visit: Yes Status: Acute Assessment and plan: Continue home medications (5) Essential hypertension Current Visit: Yes Status: Acute Assessment and plan: fairly controlled cont home meds Lisinopril, inc cardizem CD to 240mg, also inc HCTZ to 25m PO daily (6) Incidental lung nodule, greater than or equal to 8mm Current Visit: Yes Status: Acute Assessment and plan: Chest CTA revealed an incidental finding of 12 mm nodule in the anterior right upper lobe counseled to quit smoking also recommend to f/u with PCP / Pulm as an out pt Need repeat CT of Chest in 6 weeks (7) Chronic respiratory failure with hypoxia, on home O2 therapy Current Visit: Yes Status: Chronic Assessment and plan: seems back to baseline (8) DVT prophylaxis Current Visit: Yes Status: Acute Assessment and plan: Subcutaneous heparin (9) Tobacco dependence Current Visit: Yes Status: Acute Assessment and plan: Counseled to quit (10) Physical deconditioning Current Visit: Yes Status: Acute Assessment and plan: PT / OT eval may need ECF placement SW and CM working on it - Time Spent With Patient Total time spent is greater than 50% in coordination of care (as documented) at patient's floor/unit and/or counseling patient: - Subjective Interval history: Ms. Joy is a 72 y/o F with known COPD, chronic hypoxic resp failure on 3 lit home O2 dependent, chronic smoker who was brought into our ER on 01/22/18 with unresponsiveness and acute hypoxic resp failure. Pt was intubated on filed. She was admitted into ICU got extubated on 01/25/18. She was placed on high dose IV steroids and empirical abx initially. Now pt states she is back to her baseline. Still has some some SOB and VERA. Denied any CP . No fever / chills. Overall feels better. - Constitutional Vitals: Temp Pulse Resp BP Pulse Ox 99.0 F 100 16 171/53 92 01/30/18 11:05 01/30/18 11:05 01/30/18 11:28 01/30/18 11:05 01/30/18 11:28 General appearance: Present: cooperative, A&O X 3, answers questions appropriately - Head Head exam: Present: atraumatic, normal inspection - Neck Neck exam general surgery: Present: supple - Respiratory Respiratory exam: Present: decreased breath sounds, wheezes. Absent: rales, respiratory distress, rhonchi - Cardiovascular Cardiovascular exam: Present: RRR, +S1, +S2. Absent: tachycardia - GI/Abdominal GI/Abdominal exam: Present: normal bowel sounds, soft. Absent: rebound, rigid, tenderness - Back Exam Back exam: Absent: CVA tenderness (L), CVA tenderness (R) - Neurological Exam Neurological exam: Present: alert, oriented X3 Internal Medicine: Result - Labs CBC & Chem 7: 01/28/18 03:10 01/28/18 03:10 - ABG Interpretation ABG results: ABG ABG pH 7.35 pH Units (7.32-7.45) 01/25/18 04:47 ABG pCO2 52 mmHg (35-45) H 01/25/18 04:47 ABG pO2 68 mmHg (85-104) L 01/25/18 04:47 ABG O2 Saturation 92 % (95-98) L 01/25/18 04:47 PT/INR, D-dimer PT 10.8 Seconds (9.4-12.1) 01/22/18 11:48 - VTE Documentation of Mechanical Device: Intermittent pneumatic compression device Consult Discharge Plan - Plan Referrals: Carla Valenzuela CNP [Advanced Practice Nurse] - NONE,PCP [Primary Care Provider] - Prescriptions: Diltiazem CD (24hr) [Cardizem CD] 240 mg PO DAILY #30 cap.er.24h hydroCHLOROthiazide [Hydrochlorothiazide] 25 mg PO DAILY #30 tablet Nicotine Patch [Nicoderm] 21 mg TD DAILY #30 patch.td24 predniSONE [PredniSONE] 40 mg PO DAILY #10 tablet
[2018-01-30] MEDS ORDERED: hydroCHLOROthiazide 25 MG TABLET PO SCH (14:00)
[2018-01-31] MEDS: Ipratropium/Albuterol Neb 3 ML IH SCH ×3 (03:48→11:26)
[2018-01-31] MEDS: *HR* Heparin 5,000 UNIT/ML VIAL SQ SCH (05:13)
[2018-01-31 06:15] LABS: BUN/Creatinine Ratio 45 (6-26); Blood Urea Nitrogen 18 mg/dL (8-23); Calcium 8.3 mg/dL (8.6-10.3); Carbon Dioxide 41 mEq/L (23-29); Chloride 94 mEq/L (98-107); Glucose 118 mg/dL (70-105); Magnesium 1.7 mg/dL (1.6-2.6); Osmolality,Calculated 287 (280-300); Potassium 4.3 mEq/L (3.5-5.1); Sodium 137 mEq/L (136-145); eGFR For African Americans > 60 (> 60); eGFR For Non-African Americans > 60 (> 60)
[2018-01-31] MEDS: Budesonide/Formoterol 160/4.5 MDI IH SCH (07:34)
[2018-01-31] MEDS: predniSONE 20 MG TABLET PO SCH (08:07)
[2018-01-31] MEDS: Lisinopril 20 MG TABLET PO SCH (08:07)
[2018-01-31] MEDS: Diltiazem CD (24hr) 240 MG CAPSULE PO SCH (08:07)
[2018-01-31] MEDS: levETIRAcetam 250 MG TABLET PO SCH (08:08)
[2018-01-31] MEDS: Nicotine 21 MG PATCH.TD24 TD SCH (08:08)
[2018-01-31] MEDS ORDERED: hydroCHLOROthiazide 25 MG TABLET PO SCH (09:00)
--- NOTE | 2018-01-31 10:23 | Discharge Summary ---
- NOTES TO OUTPATIENT PROVIDER Notes to Outpatient Provider: f/u with Salvage Worker Dr. Muro in one week Date of Encounter: 01/31/18 Time of Encounter: 10:22 - Discharge Diagnosis (1) Acute purulent bronchitis Priority: Primary Status: Acute (2) Acute respiratory failure with hypoxia Priority: Primary Status: Acute (3) COPD (chronic obstructive pulmonary disease) Priority: Primary Status: Acute Qualifiers: COPD type: chronic bronchitis Chronic bronchitis type: unspecified Qualified Code(s): J42 - Unspecified chronic bronchitis (4) Seizure disorder Priority: Secondary Status: Acute (5) Essential hypertension Priority: Secondary Status: Acute (6) Incidental lung nodule, greater than or equal to 8mm Priority: Secondary Status: Acute (7) Chronic respiratory failure with hypoxia, on home O2 therapy Priority: Secondary Status: Chronic (8) DVT prophylaxis Priority: Secondary Status: Acute (9) Tobacco dependence Priority: Secondary Status: Acute (10) Physical deconditioning Priority: Secondary Status: Acute (11) Hypercapnic respiratory failure, chronic Priority: Secondary Status: Acute Hospital course: Ms. Joy is a 72 y/o F with known COPD, chronic hypoxic resp failure on 3 lit home O2 dependent, chronic smoker who was brought into our ER on 01/22/18 with unresponsiveness and acute hypoxic resp failure. Pt was intubated on filed. She was admitted into ICU got extubated on 01/25/18. She was placed on high dose IV steroids and empirical abx initially. Her blood cx did not grow anything. Pt symptoms started improving slowly. She finished 7 days of her antibiotic course. Initially she was reuiered high dose IV steroids which eventually switched to PO steroids. Pt was evaluated by PT / OT who recommend ECF placement for short term rehab. So will d/c her to ECF today in stable condition.She does have chronic hypercapneic resp failure too. Pt does use NIVPP ventilation at home, will recommend to continue at ECF. - Time Spent with Patient Total time spent providing and/or coordinating discharge services: Greater than 30 minutes (Spent 35 mins on her discharge summary due to her complex medical problems and prolonged length of hosp stay) - Discharge Medications Prescriptions: Diltiazem CD (24hr) [Cardizem CD] 240 mg PO DAILY #30 cap.er.24h hydroCHLOROthiazide [Hydrochlorothiazide] 25 mg PO DAILY #30 tablet Nicotine Patch [Nicoderm] 21 mg TD DAILY #30 patch.td24 predniSONE [PredniSONE] 40 mg PO DAILY #10 tablet Home Medications: Albuterol Sulfate [Ventolin Hfa] 2 puff IH BID 01/22/18 [History] Budesonide/Formoterol 160/4.5 [Symbicort 160/4.5] 2 puff IH BIDR 01/22/18 [ History] Ergocalciferol (VITAMIN D2) [Vitamin D2] 50,000 unit PO SA 01/22/18 [History] Ferrous Sulfate [Iron] 325 mg PO DAILY 01/22/18 [History] Fluticasone Propionate Nasal [Flonase] 2 spr NS DAILY 01/22/18 [History] LevETIRAcetam [Keppra] 500 mg PO Q12H 01/22/18 [History] Lisinopril [Zestril] 40 mg PO DAILY 01/22/18 [History] Loratadine [Allergy Relief] 10 mg PO DAILY 01/22/18 [History] Megestrol Acetate [Megace] 4,000 mg PO BID 01/22/18 [History] Multivit-Min/FA/Lycopen/Lutein [A Thru Z Select Multivit Tab] 1 tab PO DAILY [History] Tiotropium [Spiriva] 18 mcg IH DAILY 01/22/18 [History] Venlafaxine HCl [Venlafaxine HCl ER] 150 mg PO DAILY 01/22/18 [History] Diltiazem CD (24hr) [Cardizem CD] 240 mg PO DAILY #30 cap.er.24h 01/30/18 [Rx] Nicotine Patch [Nicoderm] 21 mg TD DAILY #30 patch.td24 01/30/18 [Rx] hydroCHLOROthiazide [Hydrochlorothiazide] 25 mg PO DAILY #30 tablet 01/30/18 [Rx ] predniSONE [PredniSONE] 40 mg PO DAILY #10 tablet 01/30/18 [Rx] Allergies/Adverse Reactions: 3 Allergy/AdvReac Type Severity Reaction Status Date / Time No Known Allergies Allergy Unverified 03/31/16 11:10 Date of admission: 01/22/18 16:26 Primary care physician: PCP NONE Consults: 01/23/18 11:33 Consult to Nutrition [CONS] Routine Comment: Consulting Provider: NUTRITION Reason for Dietary Consult: Tube Feed Start & Manage 01/26/18 08:55 Consult to Physical Therapy [CONS] Routine Comment: Evaluate, develop and implement POC Reason for Consult: possible placement or home health Does patient have active BEDREST order?: No Is patient medically & hemodynamically stable?: Yes 01/27/18 10:45 Consult to Loan Servicing Representative [CONS] Routine Reason for SW Consult: home health or posible ECF 01/30/18 08:43 Consult to Occupational Therapy [CONS] Routine Comment: Evaluate, develop and implement POC Reason for Consult: eval for ecf Does patient have active BEDREST order?: No Is patient medically & hemodynamically stable?: Yes - Constitutional Vitals: Temp Pulse Resp BP Pulse Ox 98.3 F 92 16 167/79 93 01/31/18 06:40 01/31/18 06:40 01/31/18 07:33 01/31/18 06:40 01/31/18 07:33 General appearance: Present: cooperative, A&O X 3, answers questions appropriately - Head Head exam: Present: atraumatic, normal inspection - Neck Neck exam general surgery: Present: supple - Respiratory Respiratory exam: Present: decreased breath sounds, wheezes (mild). Absent: rales, respiratory distress, rhonchi - Cardiovascular Cardiovascular exam: Present: RRR, +S1, +S2. Absent: tachycardia - GI/Abdominal GI/Abdominal exam: Present: normal bowel sounds, soft. Absent: rebound, rigid, tenderness - Extremities Exam Extremities exam: Absent: calf tenderness, pedal edema, tenderness - Back Exam Back exam: Absent: CVA tenderness (L), CVA tenderness (R) - Neurological Exam Neurological exam: Present: alert, oriented X3 - Psychiatric Psychiatric exam: Present: normal affect, normal mood - Patient Status Disposition: Transfer SNF Condition: Good Overall status at discharge: patient is back to baseline - Ambulatory Orders Ambulatory Orders: Basic Metabolic Panel [CHEM] Time Frame: 1 Week, Facility: [facility], Location: Lab Magnesium [CHEM] Time Frame: 1 Week, Facility: [facility], Location: Lab - Discharge Instructions Follow Up With: Carla Valenzuela H[employer]BER [Advanced Practice Nurse] - NONE,PCP [Primary Care Provider] - - Diet and Activity Activity: as per physical therapy, increase activity as tolerated, wear oxygen at all times Diet: low salt diet - VTE Documentation of Mechanical Device: Intermittent pneumatic compression device
--- NOTE | 2018-01-31 10:40 | Physician Discharge Referral ---
ExtendedCare Referral Info Transfer To: ECF Provider in Charge after Transfer: PCP Institutional Level of Care: Skilled - Diagnosis (1) Acute purulent bronchitis Status: Acute (2) Acute respiratory failure with hypoxia Status: Acute (3) COPD (chronic obstructive pulmonary disease) Status: Acute (4) Seizure disorder Status: Acute (5) Essential hypertension Status: Acute (6) Incidental lung nodule, greater than or equal to 8mm Status: Acute (7) Chronic respiratory failure with hypoxia, on home O2 therapy Status: Chronic (8) DVT prophylaxis Status: Acute (9) Tobacco dependence Status: Acute (10) Physical deconditioning Status: Acute (11) Hypercapnic respiratory failure, chronic Status: Acute - Transfer Medications Prescriptions: Diltiazem CD (24hr) [Cardizem CD] 240 mg PO DAILY #30 cap.er.24h hydroCHLOROthiazide [Hydrochlorothiazide] 25 mg PO DAILY #30 tablet Nicotine Patch [Nicoderm] 21 mg TD DAILY #30 patch.td24 predniSONE [PredniSONE] 40 mg PO DAILY #10 tablet Home Medications: Albuterol Sulfate [Ventolin Hfa] 2 puff IH BID 01/22/18 [History] Budesonide/Formoterol 160/4.5 [Symbicort 160/4.5] 2 puff IH BIDR 01/22/18 [ History] Ergocalciferol (VITAMIN D2) [Vitamin D2] 50,000 unit PO SA 01/22/18 [History] Ferrous Sulfate [Iron] 325 mg PO DAILY 01/22/18 [History] Fluticasone Propionate Nasal [Flonase] 2 spr NS DAILY 01/22/18 [History] LevETIRAcetam [Keppra] 500 mg PO Q12H 01/22/18 [History] Lisinopril [Zestril] 40 mg PO DAILY 01/22/18 [History] Loratadine [Allergy Relief] 10 mg PO DAILY 01/22/18 [History] Megestrol Acetate [Megace] 4,000 mg PO BID 01/22/18 [History] Multivit-Min/FA/Lycopen/Lutein [A Thru Z Select Multivit Tab] 1 tab PO DAILY [History] Tiotropium [Spiriva] 18 mcg IH DAILY 01/22/18 [History] Venlafaxine HCl [Venlafaxine HCl ER] 150 mg PO DAILY 01/22/18 [History] Diltiazem CD (24hr) [Cardizem CD] 240 mg PO DAILY #30 cap.er.24h 01/30/18 [Rx] Nicotine Patch [Nicoderm] 21 mg TD DAILY #30 patch.td24 01/30/18 [Rx] hydroCHLOROthiazide [Hydrochlorothiazide] 25 mg PO DAILY #30 tablet 01/30/18 [Rx ] predniSONE [PredniSONE] 40 mg PO DAILY #10 tablet 01/30/18 [Rx] Allergies/Adverse Reactions: 3 Allergy/AdvReac Type Severity Reaction Status Date / Time No Known Allergies Allergy Unverified 03/31/16 11:10 - Respiratory Orders Smoking Cessation: Smoking cessation has been advised. For more information, call the [place] Tobacco Quit Line at 5-875-SLMWNOW. CERTIFICATION: I certify that the transfer of the above named patient to an Extended Care Facility is necessary for the continuing treatment of the diagnosis listed. The above information is true and accurate reflection of patient's current condition. Confidential - Redisclosure prohibited without a patient's written consent.
[2018-01-31 10:58] VITALS: BP 174/78
== END 2018-01-31 14:15 | DRG 208 ==
LOC: EMEROO 11:24 → SUATTDRO 16:26 → ICNU 16:26 → 2ANU 01-26 18:37
PROVIDERS: ADMIT Internal Medicine Pulmonary Disease; ATTEND Family Medicine